=== PATIENT | male | born 1940 | race Caucasian/White ===

== ENCOUNTER 2023-02-07 20:39 | Inpatient (IN) ==
[2023-02-07] MEDS ORDERED: LACTATED RINGERS 1,000 ML IV ONE (20:54)
[2023-02-07 21:01] LABS: POC Calcium, Ionized 1.08 (1.16-1.32); POC Potassium 3.6 (3.3-5.1)
[2023-02-07] MEDS ORDERED: METOPROLOL TARTRATE 5 MG/5 ML VIAL IV ONE (21:44)
[2023-02-07] MEDS ORDERED: ACETAMINOPHEN 325 MG TABLET PO ONE (21:56)
[2023-02-07 21:59] LABS: ALT/SGPT 10 U/L (<40); AST/SGOT 32 U/L (<40); Alkaline Phosphatase 156 U/L (39-117); Bilirubin,Direct 0.2 mg/dL (<0.3); Bilirubin,Total 0.7 mg/dL (0.1-1.0); Globulin 3.5 gm/dL (2.2-3.7)
[2023-02-07 22:11] LABS: Basophils # (Auto) 0.01 K/mcL (0.00-0.30); Basophils % (Auto) 0.2 % (0.0-2.0); Eosinophils # (Auto) 0 K/mcL (0.00-0.70); Eosinophils % (Auto) 0 % (0.0-7.0); Hematocrit 37.1 % (40.1-51.0); Hemoglobin 12.5 g/dL (13.7-17.5); Lymphocytes # (Auto) 1.15 K/mcL (1.50-4.80); Lymphocytes % (Auto) 25.4 % (15.5-49.0); Mean Cell Volume 90.3 fL (80.0-100.0); Mean Corpuscular HGB Conc 33.7 g/dL (31.0-36.0); Mean Platelet Volume 11.7 fL (8.8-12.5); Monocytes # (Auto) 1.22 K/mcL (0.10-0.90); Platelet Count 189 K/mcL (140-440); RBC 4.11 M/mcL (4.63-6.08); WBC 4.5 K/mcL (4.5-11.0)
[2023-02-07 22:22] LABS: Appearance,Urine CLEAR (Clear); Bilirubin,Urine Negative (Negative); Color,Urine YELLOW; Culture Indicated,Urine No; Glucose,Urine (UA) 150 mg/dL (Negative); Ketones,Urine Negative (Negative); Leukocyte Esterase,Urine Negative /uL (Negative); Nitrate,Urine Negative (Negative); Protein,Urine 100 mg/dL (Negative); Specific Gravity,Urine 1.011 (1.000-1.035); Urine Blood >=1.0 mg/dL (Negative); Urine RBC > 182 /hpf (0-1); Urine Squamous Epithelial Cell 0 /hpf (0-4); Urine WBC 1 /hpf (0-4); Urobilinogen,Urine Negative
--- NOTE | 2023-02-07 22:35 | Emergency Department Note ---
HPI General Chief complaint: Weakness Stated complaint: weakness/ams/vomiting Time Seen by Provider: 02/07/23 20:44 Source: family Mode of arrival: wheelchair Limitations: altered mental status History of Present Illness HPI Narrative: Narrative: This is an 82-year-old gentleman with a history of atrial fibrillation, chronic kidney disease, coronary artery disease, atrial fibrillation presents to the emergency department with cough, fevers confusion and diffuse weakness. There does not seem to be any obvious source of pain. The patient denies any falls. The patient was actually seen in the emergency department yesterday was given some IV fluids for weakness and confusion and his mentation and generalized strength seem to improve. Family states that he seems to be worse today. His fever is much higher. Related Data Home Medications Medication Instructions Recorded Confirmed aspirin 81 mg chewable tablet 81 mg PO QDAY 05/12/15 01/20/23 multivitamin 1 tab-cap PO QDAY 05/12/15 01/20/23 omega-3 fatty acids 1,000 mg 1,000 mg PO BID 09/06/19 01/20/23 capsule (Fish Oil Concentrate) cholecalciferol (vitamin D3) 50 1,000 unit PO QDAY 07/12/22 01/20/23 mcg (2,000 unit) capsule gabapentin 100 mg capsule 300 mg PO QHS 07/12/22 01/20/23 laxiclear PO PRN 07/12/22 01/20/23 calcium carbonate 600 mg calcium 600 mg PO QDAY 01/10/23 01/20/23 (1,500 mg) tablet mirabegron 50 mg tablet,extended 50 mg PO QDAY 01/10/23 01/20/23 release 24 hr (Myrbetriq) Previous Rx's Medication Instructions Recorded apixaban 2.5 mg tablet (Eliquis) 2.5 mg PO BID #180 tabs 04/29/22 atorvastatin 20 mg tablet 20 mg PO QDAY #90 tabs 04/29/22 tamsulosin 0.4 mg capsule 0.4 mg PO Q24H #90 caps 04/29/22 finasteride 5 mg tablet 5 mg PO QDAY #90 tabs 05/27/22 levothyroxine 100 mcg tablet 100 mcg PO QDAY #90 tabs 06/27/22 metoprolol succinate 50 mg 50 mg PO QDAY a fib and HTN #90 07/12/22 tablet,extended release 24 hr tabs losartan 25 mg tablet 25 mg PO QDAY #90 tabs 01/09/23 fluticasone propionate 50 1 spray intranasal QDAY PRN 01/10/23 mcg/actuation nasal allergy symptoms #16 grams spray,suspension Allergies Allergy/AdvReac Type Severity Reaction Status Date / Time No Known Drug Allergies Allergy Verified 02/06/23 12:54 Review of Systems ROS ROS Narrative: Narrative: All systems ED: reviewed and negative except as stated. [facility]LY [facility] Narrative Patient History Narrative: Narrative: Medical/Surgical/Family History All Active Problems (Updated 02/07/23 @ 23:18 by Venancio Silvestre MD) CKD (chronic kidney disease), stage III (Chronic) CAD (coronary artery disease) (Chronic) HTN (hypertension), benign (Chronic) DM type 2 (diabetes mellitus, type 2) (Chronic) S/P CABG x 2 (Chronic) Anemia (Chronic) Back pain (Chronic) Mazariegos's esophagus (Chronic) GERD (gastroesophageal reflux disease) (Chronic) Hyperlipidemia (Chronic 01/12/14) Hypertensive renal disease (Chronic 01/12/14) Proteinuria (Chronic 01/12/14) History of skin cancer (Chronic) Somnolence (Chronic) Secondary hyperparathyroidism of renal origin (Chronic) Hyperparathyroidism due to renal insufficiency (Chronic) BPH w/o urinary obs/LUTS (Chronic) 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) Polyuria (Chronic) Impairment of urinary concentration (Chronic) Leg swelling (Chronic) Hypothyroidism (acquired) (Acute) CKD (chronic kidney disease) stage 4, GFR 15-29 ml/min (Acute) Medicare annual wellness visit, subsequent (Acute) PAD (peripheral artery disease) (Acute) Right shoulder pain (Acute) Nocturia (Acute) Hot flash in male (Acute) Chronic right shoulder pain (Acute) Opiate overdose (Acute) Postoperative fever (Acute) Gross hematuria (Acute) S/P repair of paraesophageal hernia (Acute) Status post laparoscopic fundoplication (Acute) Hematuria (Acute) Nocturia more than twice per night (Chronic) Permanent atrial fibrillation (Acute) Dehydration (Acute) Generalized weakness (Acute) Atrial fibrillation with rapid ventricular response (Acute) Acute hypoxemic respiratory failure due to COVID-19 (Acute) Medical History Acute kidney injury Anemia Back pain Mazariegos's esophagus BPH w/o urinary obs/LUTS Not well controlled on finasteride and Flomax for the last few years. CAD (coronary artery disease) Status post CABG in 2002 and 2013 Follows with cardiology Aspirin and statin CKD (chronic kidney disease), stage III Incomplete recovery from ATN PLUS underlying proteinuric renal disease with Hx of DM and HTN. 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 History of skin cancer HTN (hypertension), benign Hyperlipidemia (01/12/14) Hyperparathyroidism due to renal insufficiency Goal level 150-300 arrange which she is in Hypertensive renal disease (01/12/14) BP control much improved ct with losartan at lower dose follow low sodium diet will monitor Impairment of urinary concentration Most likely tubulointerstitial process with urine specific gravity fixed at 1.010 Leg swelling Medicare annual wellness visit, subsequent Polyuria Continue alpha-1 arlene, beta 3 antagonist, and a 5 hydroxylase inhibitor Proteinuria (01/12/14) from diabetic kidney disease is a likely possibility losartan for antiproteinuric effect Renal failure (ARF), acute on chronic Acute prerenal azotemia due to dehydration and losartan Baseline creatinine in the 2's with a peak of 4.1 on March 20, 2022 Treated with IV fluids and discontinuation of his losartan, followed by resart of losartan at decreased dose. Secondary hyperparathyroidism of renal origin PTH elevated to 122, Vitamin D is low at 29, calcium is at 9.2, phos is low at 2.6 start cholecalciferol will follow labs, if phos remains low with start supplements Somnolence increase fatigue ? need to r/o sleep apnea if symptoms do not improve, consider sleept study 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 hypertension Stable GFR after brief decline. Nonnephrotic range proteinuria Surgical History History of arthroscopic knee surgery 1990 Right History of carpal tunnel repair 1988 Bilateral History of cataract surgery 2004 Bilateral History of coronary artery bypass graft 2003 Times 3 History of open heart surgery (01/27/15) History of repair of left rotator cuff 2003 History of repair of right rotator cuff 2001 History of total right knee replacement 2009 S/P CABG x 2 S/P repair of paraesophageal hernia Status post laparoscopic fundoplication Family History Brothers Accidental Sister Accidental Father Aortic aneurysm, Onset Age: 72 Brother , of unknown cancer Family history of malignant neoplasm, Onset Age: 58 Mother Malignant Melanoma of Skin, Onset Age: 75 Other Cancer Social History Smoking Status: Former smoker and Smokeless tobacco Alcohol Intake Frequency: does not drink Substance Use: does not use Exam Narrative Narrative: Narrative: Vital signs noted General: Awake. Mild distress HEENT: NCAT PERRL EOMI. No conjunctivitis. Membranes moist. Neck: Supple, trachea midline Cardiovascular: Irregularly irregular tachycardic. No murmur. No rubs. No gallops. Respiratory: Tachypneic, breath sounds are clear Gastrointestinal: Soft. No tenderness Musculoskeletal: No pain. No soft tissue swelling. Good ROM. No signs injury Skin: Warm. Dry. No rash Neurologic: Moves all extremities equally and fully, speech is fluent face is symmetric General Limitations: altered mental status Course Vital Signs Vital signs: Vital Signs Temperature 102.8 F H 02/07/23 20:40 Pulse Rate 123 H 02/07/23 20:40 Respiratory Rate 22 02/07/23 20:40 Blood Pressure 179/106 02/07/23 20:40 Pulse Oximetry (%) 90 02/07/23 20:40 Oxygen Delivery Method Room Air 02/07/23 20:40 Temperature 101.0 F H 02/07/23 23:02 Pulse Rate 111 H 02/07/23 22:31 Respiratory Rate 22 02/07/23 23:34 Blood Pressure 156/96 02/07/23 23:02 Pulse Oximetry (%) 96 02/07/23 22:49 Oxygen Delivery Method Nasal Cannula 02/07/23 23:02 Oxygen Flow Rate (L/min) 2 02/07/23 23:02 [facility] MDM Narrative Medical decision making narrative: Narrative: Patient presents to the emergency department for fevers, confusion and a slight productive cough. He is ill-appearing upon arrival he is in A-fib with RVR, tachypneic and febrile he is confused from his baseline per family. Sepsis work-up was initiated patient's lactate is within normal limits his venous blood gas does not show any evidence of acidosis. Procalcitonin is not significantly elevated his creatinine is mildly elevated at 3.0. I did review patient's visit and labs from yesterday. He did not have any leukocytosis nor does he today. His COVID testing is positive. Influenza testing is negative. His chest x-ray per my interpretation does not show any evidence of acute infiltrate. The patient is desaturating to the high 80s without exertion he is placed on 2 L nasal cannula. Patient's heart rate was up into the 130s intermittently I did give him 5 mg IV Lopressor with some improvement in his heart rate. The patient was given Tylenol for fever. Given the patient's age and medical comorbidities I have spoke with the hospitalist who has agreed to admit him for hypoxia, COVID. Lab Data 02/07/23 19:45 Labs: Lab Results 02/07/23 02/07/23 02/07/23 Range/Units 19:45 19:45 19:45 WBC 4.5 (4.5-11.0) K/mcL RBC 4.11 L (4.63-6.08) M/mcL Hgb 12.5 L (13.7-17.5) g/dL Hct 37.1 L (40.1-51.0) % POC Hct (41-55) MCV 90.3 (80.0-100.0) fL MCH 30.4 (26.0-34.0) pg MCHC 33.7 (31.0-36.0) g/dL RDW 13.0 (11.5-14.5) % Plt Count 189 (140-440) K/mcL MPV 11.7 (8.8-12.5) fL Immature Gran % (Auto) 0.4 (0.0-0.5) % Neut % (Auto) 47.0 (38.0-78.0) % Lymph % (Auto) 25.4 (15.5-49.0) % Custer % (Auto) 27.0 H (1.0-12.0) % Eos % (Auto) 0 (0.0-7.0) % Baso % (Auto) 0.2 (0.0-2.0) % Lymph # (Auto) 1.15 L (1.50-4.80) K/mcL Custer # (Auto) 1.22 H (0.10-0.90) K/mcL Eos # (Auto) 0 (0.00-0.70) K/mcL Baso # (Auto) 0.01 (0.00-0.30) K/mcL Immature Gran # 0.02 (0.00-0.05) K/mcl Absolute Neutrophils 2.12 (1.80-8.00) K/mcL POC VBG pH (7.32-7.42) POC VBG pCO2 at Temp (41-51) POC VBG pO2 (25-40) POC VBG HCO3 (24-28) POC VBG Total CO2 (25-29) POC Venous O2 Sat (40-70) POC VBG Base Excess (-2-2) VBG Lactic Acid (0.5-2) POC Sodium (133-145) POC Potassium (3.3-5.1) POC Chloride (96-108) POC Total CO2 (22-30) POC BUN (6-20) POC Creatinine (0.6-1.2) POC Glucose (70-105) POC WB Ioniz Calcium (1.16-1.32) Total Bilirubin 0.7 (0.1-1.0) mg/dL Direct Bilirubin 0.2 (<0.3) mg/dL AST 32 (<40) U/L ALT 10 (<40) U/L Alkaline Phosphatase 156 H (39-117) U/L Troponin T (<0.03) ng/mL Total Protein 7.5 (5.9-8.4) gm/dL Albumin 4.0 (3.2-5.2) gm/dL Globulin 3.5 (2.2-3.7) gm/dL Procalcitonin 0.20 H (<0.10) ng/mL Urine Color Urine Appearance (Clear) Urine pH (5.0-9.0) Ur Specific Crane (1.000-1.035) Urine Protein (Negative) mg/dL Urine Glucose (UA) (Negative) mg/dL Urine Ketones (Negative) mg/dL Urine Occult Blood (Negative) mg/dL Urine Nitrate (Negative) Urine Bilirubin (Negative) mg/dL Urine Urobilinogen mg/dL Ur Leukocyte Esterase (Negative) /uL Urine RBC (0-1) /hpf Urine WBC (0-4) /hpf Ur Squamous Epith Cells (0-4) /hpf Urine Bacteria (0) /hpf Ur Culture Indicated? POC Troponin I (0.00-0.08) 02/07/23 02/07/23 02/07/23 Range/Units 19:45 20:55 20:57 WBC (4.5-11.0) K/mcL RBC (4.63-6.08) M/mcL Hgb (13.7-17.5) g/dL Hct (40.1-51.0) % POC Hct 38.0 L (41-55) MCV (80.0-100.0) fL MCH (26.0-34.0) pg MCHC (31.0-36.0) g/dL RDW (11.5-14.5) % Plt Count (140-440) K/mcL MPV (8.8-12.5) fL Immature Gran % (Auto) (0.0-0.5) % Neut % (Auto) (38.0-78.0) % Lymph % (Auto) (15.5-49.0) % Custer % (Auto) (1.0-12.0) % Eos % (Auto) (0.0-7.0) % Baso % (Auto) (0.0-2.0) % Lymph # (Auto) (1.50-4.80) K/mcL Custer # (Auto) (0.10-0.90) K/mcL Eos # (Auto) (0.00-0.70) K/mcL Baso # (Auto) (0.00-0.30) K/mcL Immature Gran # (0.00-0.05) K/mcl Absolute Neutrophils (1.80-8.00) K/mcL POC VBG pH 7.46 H (7.32-7.42) POC VBG pCO2 at Temp 38.0 L (41-51) POC VBG pO2 36 (25-40) POC VBG HCO3 27.0 (24-28) POC VBG Total CO2 28.0 (25-29) POC Venous O2 Sat 73.0 H (40-70) POC VBG Base Excess 3.0 H (-2-2) VBG Lactic Acid 1.3 (0.5-2) POC Sodium 134 (133-145) POC Potassium 3.6 (3.3-5.1) POC Chloride 98 (96-108) POC Total CO2 26.0 (22-30) POC BUN 29 H (6-20) POC Creatinine 3.0 H (0.6-1.2) POC Glucose 188 H (70-105) POC WB Ioniz Calcium 1.08 L (1.16-1.32) Total Bilirubin (0.1-1.0) mg/dL Direct Bilirubin (<0.3) mg/dL AST (<40) U/L ALT (<40) U/L Alkaline Phosphatase (39-117) U/L Troponin T 0.02 (<0.03) ng/mL Total Protein (5.9-8.4) gm/dL Albumin (3.2-5.2) gm/dL Globulin (2.2-3.7) gm/dL Procalcitonin (<0.10) ng/mL Urine Color Urine Appearance (Clear) Urine pH (5.0-9.0) Ur Specific Crane (1.000-1.035) Urine Protein (Negative) mg/dL Urine Glucose (UA) (Negative) mg/dL Urine Ketones (Negative) mg/dL Urine Occult Blood (Negative) mg/dL Urine Nitrate (Negative) Urine Bilirubin (Negative) mg/dL Urine Urobilinogen mg/dL Ur Leukocyte Esterase (Negative) /uL Urine RBC (0-1) /hpf Urine WBC (0-4) /hpf Ur Squamous Epith Cells (0-4) /hpf Urine Bacteria (0) /hpf Ur Culture Indicated? POC Troponin I (0.00-0.08) 02/07/23 02/07/23 Range/Units 21:01 21:37 WBC (4.5-11.0) K/mcL RBC (4.63-6.08) M/mcL Hgb (13.7-17.5) g/dL Hct (40.1-51.0) % POC Hct (41-55) MCV (80.0-100.0) fL MCH (26.0-34.0) pg MCHC (31.0-36.0) g/dL RDW (11.5-14.5) % Plt Count (140-440) K/mcL MPV (8.8-12.5) fL Immature Gran % (Auto) (0.0-0.5) % Neut % (Auto) (38.0-78.0) % Lymph % (Auto) (15.5-49.0) % Custer % (Auto) (1.0-12.0) % Eos % (Auto) (0.0-7.0) % Baso % (Auto) (0.0-2.0) % Lymph # (Auto) (1.50-4.80) K/mcL Custer # (Auto) (0.10-0.90) K/mcL Eos # (Auto) (0.00-0.70) K/mcL Baso # (Auto) (0.00-0.30) K/mcL Immature Gran # (0.00-0.05) K/mcl Absolute Neutrophils (1.80-8.00) K/mcL POC VBG pH (7.32-7.42) POC VBG pCO2 at Temp (41-51) POC VBG pO2 (25-40) POC VBG HCO3 (24-28) POC VBG Total CO2 (25-29) POC Venous O2 Sat (40-70) POC VBG Base Excess (-2-2) VBG Lactic Acid (0.5-2) POC Sodium (133-145) POC Potassium (3.3-5.1) POC Chloride (96-108) POC Total CO2 (22-30) POC BUN (6-20) POC Creatinine (0.6-1.2) POC Glucose (70-105) POC WB Ioniz Calcium (1.16-1.32) Total Bilirubin (0.1-1.0) mg/dL Direct Bilirubin (<0.3) mg/dL AST (<40) U/L ALT (<40) U/L Alkaline Phosphatase (39-117) U/L Troponin T (<0.03) ng/mL Total Protein (5.9-8.4) gm/dL Albumin (3.2-5.2) gm/dL Globulin (2.2-3.7) gm/dL Procalcitonin (<0.10) ng/mL Urine Color Yellow Urine Appearance Clear (Clear) Urine pH 8.0 (5.0-9.0) Ur Specific Crane 1.011 (1.000-1.035) Urine Protein 100 A (Negative) mg/dL Urine Glucose (UA) 150 A (Negative) mg/dL Urine Ketones Negative (Negative) mg/dL Urine Occult Blood >=1.0 A (Negative) mg/dL Urine Nitrate Negative (Negative) Urine Bilirubin Negative (Negative) mg/dL Urine Urobilinogen Negative mg/dL Ur Leukocyte Esterase Negative (Negative) /uL Urine RBC > 182 H (0-1) /hpf Urine WBC 1 (0-4) /hpf Ur Squamous Epith Cells 0 (0-4) /hpf Urine Bacteria None (0) /hpf Ur Culture Indicated? No POC Troponin I 0.06 (0.00-0.08) EKG Data EKG #1: EKG attestation: Yes I reviewed and interpreted this EKG., Yes There are no EKG findings of acute coronary syndrome and Yes This EKG will be read by nuclear radiation engineer EKG results narrative: Atrial fibrillation with RVR rate of 116 no evidence of acute ischemia Discharge Plan Patient/Caregiver Discharge Instructions Pt seen by CHILD ATTENDANT/PA only: No Clinical Impression: Atrial fibrillation with rapid ventricular response, Acute hypoxemic respiratory failure due to COVID-19 Patient Disposition: Xfer As Inpt ([facility]) Discharge Date/Time: 02/08/23 00:15
[2023-02-07] MEDS ORDERED: REMDESIVIR 200 MG in 0.9 % SODIUM CHLORIDE 250 ML IV ONE (22:53)
[2023-02-07] MEDS ORDERED: DEXAMETHASONE 10 MG/ML VIAL IV ONE (22:55)
--- NOTE | 2023-02-07 23:07 | Internal Med History&Physical ---
HPI History of Present Illness Patient information: Note initiated : 02/07/23 at 11:05 pm Service Date, if different from initiated Date: [] Patient: Collin Clinton 82 y/o M admitted on for weakness/ams/vomiting. Chief Complaint: [] History of present illness: Mr. Clinton is a 82 year old male with a history of hypertension, diabetes mellitus, atrial fibrillation, chronic kidney disease stage IV, coronary artery disease who developed generalized weakness was brought to the emergency department on 02/06/2023 and found to have COVID. Patient was discharged home however returned to the hospital with worsening of symptoms and an oxygen requirement of about 2 L/min. Hospital medicine was consulted for admission. Review of systems Constitutional: Positive for fever, fatigue, generalized weakness Eyes: no vision changes or pain Cardiovascular: no chest pain, no palpitations Respiratory: Positive for cough, dyspnea Gastrointestinal: no abdominal pain, no nausea, vomiting, or diarrhea Genitourinary: no dysuria or difficulty voiding Musculoskeletal: no arthralgia or myalgia Integumentary: no skin lesion or wound Neurological: no focal weakness or numbness Psychiatric: no anxiety or depression Physical exam Head: Atraumatic, normal inspection. Eyes: normal appearance, no scleral icterus. Neck: full ROM Respiratory: 2 L/min nasal cannula oxygen, no respiratory distress. Cardiovascular: normal rate and rhythm, S1, S2. GI/Abdominal: soft, nontender, no guarding. Extremities: full range of motion, nontender. Neurological: CN II-XII intact, intact motor, intact sensation. Psychiatric: Impaired memory Skin: warm, normal color PFSH PFSH All Active Problems (Updated 02/07/23 @ 23:18 by Venancio Silvestre MD) CKD (chronic kidney disease), stage III (Chronic) CAD (coronary artery disease) (Chronic) HTN (hypertension), benign (Chronic) DM type 2 (diabetes mellitus, type 2) (Chronic) S/P CABG x 2 (Chronic) Anemia (Chronic) Back pain (Chronic) Mazariegos's esophagus (Chronic) GERD (gastroesophageal reflux disease) (Chronic) Hyperlipidemia (Chronic 01/12/14) Hypertensive renal disease (Chronic 01/12/14) Proteinuria (Chronic 01/12/14) History of skin cancer (Chronic) Somnolence (Chronic) Secondary hyperparathyroidism of renal origin (Chronic) Hyperparathyroidism due to renal insufficiency (Chronic) BPH w/o urinary obs/LUTS (Chronic) 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) Polyuria (Chronic) Impairment of urinary concentration (Chronic) Leg swelling (Chronic) Hypothyroidism (acquired) (Acute) CKD (chronic kidney disease) stage 4, GFR 15-29 ml/min (Acute) Medicare annual wellness visit, subsequent (Acute) PAD (peripheral artery disease) (Acute) Right shoulder pain (Acute) Nocturia (Acute) Hot flash in male (Acute) Chronic right shoulder pain (Acute) Opiate overdose (Acute) Postoperative fever (Acute) Gross hematuria (Acute) S/P repair of paraesophageal hernia (Acute) Status post laparoscopic fundoplication (Acute) Hematuria (Acute) Nocturia more than twice per night (Chronic) Permanent atrial fibrillation (Acute) Dehydration (Acute) Generalized weakness (Acute) Atrial fibrillation with rapid ventricular response (Acute) Acute hypoxemic respiratory failure due to COVID-19 (Acute) Medical History Acute kidney injury Anemia Back pain Mazariegos's esophagus BPH w/o urinary obs/LUTS Not well controlled on finasteride and Flomax for the last few years. CAD (coronary artery disease) Status post CABG in 2002 and 2013 Follows with cardiology Aspirin and statin CKD (chronic kidney disease), stage III Incomplete recovery from ATN PLUS underlying proteinuric renal disease with Hx of DM and HTN. 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 History of skin cancer HTN (hypertension), benign Hyperlipidemia (01/12/14) Hyperparathyroidism due to renal insufficiency Goal level 150-300 arrange which she is in Hypertensive renal disease (01/12/14) BP control much improved ct with losartan at lower dose follow low sodium diet will monitor Impairment of urinary concentration Most likely tubulointerstitial process with urine specific gravity fixed at 1.010 Leg swelling Medicare annual wellness visit, subsequent Polyuria Continue alpha-1 arlene, beta 3 antagonist, and a 5 hydroxylase inhibitor Proteinuria (01/12/14) from diabetic kidney disease is a likely possibility losartan for antiproteinuric effect Renal failure (ARF), acute on chronic Acute prerenal azotemia due to dehydration and losartan Baseline creatinine in the 2's with a peak of 4.1 on March 20, 2022 Treated with IV fluids and discontinuation of his losartan, followed by resart of losartan at decreased dose. Secondary hyperparathyroidism of renal origin PTH elevated to 122, Vitamin D is low at 29, calcium is at 9.2, phos is low at 2.6 start cholecalciferol will follow labs, if phos remains low with start supplements Somnolence increase fatigue ? need to r/o sleep apnea if symptoms do not improve, consider sleept study 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 hypertension Stable GFR after brief decline. Nonnephrotic range proteinuria Surgical History History of arthroscopic knee surgery 1990 Right History of carpal tunnel repair 1988 Bilateral History of cataract surgery 2004 Bilateral History of coronary artery bypass graft 2003 Times 3 History of open heart surgery (01/27/15) History of repair of left rotator cuff 2002 History of repair of right rotator cuff 2000 History of total right knee replacement 2009 S/P CABG x 2 S/P repair of paraesophageal hernia Status post laparoscopic fundoplication Family History Brothers Accidental Sister Accidental Father Aortic aneurysm, Onset Age: 72 Brother , of unknown cancer Family history of malignant neoplasm, Onset Age: 58 Mother Malignant Melanoma of Skin, Onset Age: 75 Other Cancer Social History marital status: occupational status: retired physical activity: walking and swimming frequency: 5-6 times per week duration: 30-45 minutes/day smoking status: Former smoker quit date: 10/06/04 pack-years: 30 and Smokeless tobacco Smokeless tobacco user details: Former alcohol intake frequency: does not drink substance use type: does not use MEDS/ALLERGIES Home Medications and Allergies Home Medications Medication Instructions Recorded Confirmed Type aspirin 81 mg chewable tablet 81 mg PO QDAY 05/12/15 01/20/23 History multivitamin 1 tab-cap PO QDAY 05/12/15 01/20/23 History omega-3 fatty acids 1,000 mg 1,000 mg PO BID 09/06/19 01/20/23 History capsule (Fish Oil Concentrate) apixaban 2.5 mg tablet (Eliquis) 2.5 mg PO BID #180 tabs 04/29/22 01/20/23 Rx atorvastatin 20 mg tablet 20 mg PO QDAY #90 tabs 04/29/22 01/20/23 Rx tamsulosin 0.4 mg capsule 0.4 mg PO Q24H #90 caps 04/29/22 01/20/23 Rx finasteride 5 mg tablet 5 mg PO QDAY #90 tabs 05/27/22 01/20/23 Rx levothyroxine 100 mcg tablet 100 mcg PO QDAY #90 tabs 06/27/22 01/20/23 Rx cholecalciferol (vitamin D3) 50 1,000 unit PO QDAY 07/12/22 01/20/23 History mcg (2,000 unit) capsule gabapentin 100 mg capsule 300 mg PO QHS 07/12/22 01/20/23 History laxiclear PO PRN 07/12/22 01/20/23 History metoprolol succinate 50 mg 50 mg PO QDAY a fib and HTN #90 07/12/22 01/20/23 Rx tablet,extended release 24 hr tabs losartan 25 mg tablet 25 mg PO QDAY #90 tabs 01/09/23 01/20/23 Rx calcium carbonate 600 mg calcium 600 mg PO QDAY 01/10/23 01/20/23 History (1,500 mg) tablet fluticasone propionate 50 1 spray intranasal QDAY PRN 01/10/23 01/20/23 Rx mcg/actuation nasal allergy symptoms #16 grams spray,suspension mirabegron 50 mg tablet,extended 50 mg PO QDAY 01/10/23 01/20/23 History release 24 hr (Myrbetriq) Allergies Allergy/AdvReac Type Severity Reaction Status Date / Time No Known Drug Allergies Allergy Verified 02/06/23 12:54 EXAM Constitutional Vitals: Temp Pulse Resp BP Pulse Ox O2 Del Method O2 Flow Rate 102.8 F H 111 H 23 H 148/105 96 Nasal Cannula 2 02/07/23 22:00 02/07/23 22:31 02/07/23 22:49 02/07/23 22:31 02/07/23 22:49 02/07/23 22:49 02/07/23 22:49 DATA Data Completed and Pending Labs: Labs from last 24 hours 02/07/23 02/07/23 02/07/23 21:37 21:01 20:57 WBC RBC Hgb Hct POC Hct 38.0 L MCV MCH MCHC RDW Plt Count MPV Immature Gran % (Auto) Neut % (Auto) Lymph % (Auto) Castro % (Auto) Eos % (Auto) Baso % (Auto) Lymph # (Auto) Castro # (Auto) Eos # (Auto) Baso # (Auto) Immature Gran # Absolute Neutrophils POC VBG pH POC VBG pCO2 at Temp POC VBG pO2 POC VBG HCO3 POC VBG Total CO2 POC Venous O2 Sat POC VBG Base Excess VBG Lactic Acid POC Sodium 134 POC Potassium 3.6 POC Chloride 98 POC Total CO2 26.0 POC BUN 29 H POC Creatinine 3.0 H POC Glucose 188 H POC WB Ioniz Calcium 1.08 L Total Bilirubin Direct Bilirubin AST ALT Alkaline Phosphatase Troponin T Total Protein Albumin Globulin Procalcitonin Urine Color Yellow Urine Appearance Clear Urine pH 8.0 Ur Specific Dana 1.011 Urine Protein 100 A Urine Glucose (UA) 150 A Urine Ketones Negative Urine Occult Blood >=1.0 A Urine Nitrate Negative Urine Bilirubin Negative Urine Urobilinogen Negative Ur Leukocyte Esterase Negative Urine RBC > 182 H Urine WBC 1 Ur Squamous Epith Cells 0 Urine Bacteria None Ur Culture Indicated? No POC Troponin I 0.06 02/07/23 02/07/23 02/07/23 20:55 19:45 19:45 WBC RBC Hgb Hct POC Hct MCV MCH MCHC RDW Plt Count MPV Immature Gran % (Auto) Neut % (Auto) Lymph % (Auto) Castro % (Auto) Eos % (Auto) Baso % (Auto) Lymph # (Auto) Castro # (Auto) Eos # (Auto) Baso # (Auto) Immature Gran # Absolute Neutrophils POC VBG pH 7.46 H POC VBG pCO2 at Temp 38.0 L POC VBG pO2 36 POC VBG HCO3 27.0 POC VBG Total CO2 28.0 POC Venous O2 Sat 73.0 H POC VBG Base Excess 3.0 H VBG Lactic Acid 1.3 POC Sodium POC Potassium POC Chloride POC Total CO2 POC BUN POC Creatinine POC Glucose POC WB Ioniz Calcium Total Bilirubin Direct Bilirubin AST ALT Alkaline Phosphatase Troponin T 0.02 Total Protein Albumin Globulin Procalcitonin 0.20 H Urine Color Urine Appearance Urine pH Ur Specific Dana Urine Protein Urine Glucose (UA) Urine Ketones Urine Occult Blood Urine Nitrate Urine Bilirubin Urine Urobilinogen Ur Leukocyte Esterase Urine RBC Urine WBC Ur Squamous Epith Cells Urine Bacteria Ur Culture Indicated? POC Troponin I 02/07/23 02/07/23 19:45 19:45 WBC 4.5 RBC 4.11 L Hgb 12.5 L Hct 37.1 L POC Hct MCV 90.3 MCH 30.4 MCHC 33.7 RDW 13.0 Plt Count 189 MPV 11.7 Immature Gran % (Auto) 0.4 Neut % (Auto) 47.0 Lymph % (Auto) 25.4 Castro % (Auto) 27.0 H Eos % (Auto) 0 Baso % (Auto) 0.2 Lymph # (Auto) 1.15 L Castro # (Auto) 1.22 H Eos # (Auto) 0 Baso # (Auto) 0.01 Immature Gran # 0.02 Absolute Neutrophils 2.12 POC VBG pH POC VBG pCO2 at Temp POC VBG pO2 POC VBG HCO3 POC VBG Total CO2 POC Venous O2 Sat POC VBG Base Excess VBG Lactic Acid POC Sodium POC Potassium POC Chloride POC Total CO2 POC BUN POC Creatinine POC Glucose POC WB Ioniz Calcium Total Bilirubin 0.7 Direct Bilirubin 0.2 AST 32 ALT 10 Alkaline Phosphatase 156 H Troponin T Total Protein 7.5 Albumin 4.0 Globulin 3.5 Procalcitonin Urine Color Urine Appearance Urine pH Ur Specific Dana Urine Protein Urine Glucose (UA) Urine Ketones Urine Occult Blood Urine Nitrate Urine Bilirubin Urine Urobilinogen Ur Leukocyte Esterase Urine RBC Urine WBC Ur Squamous Epith Cells Urine Bacteria Ur Culture Indicated? POC Troponin I A/P Narrative A/P Narrative: Assessment: 82 year old male with HTN, DM, afib on Eliquis, CKD, CAD admitted for severe COVID-19 complicated by acute hypoxic respiratory failure. Symptom onset was the day prior to admission. #Acute hypoxic respiratory failure #Severe COVID-19 #Atrial fibrillation with RVR #Chronic kidney disease stage 4 #Diabetes mellitus #Hypertension #CAD Plan -Dexamethasone 6 mg daily per COVID protocol. -Remdesivir for early COVID, symptom onset 02/06. -Oxygen supplementation as needed. -IV fluid. -Check CRP. -Follow renal function. -Correction Humalog SSI medium dose. -Lopressor IV prn for Afib with RVR for now. -Follow up pending chest xray radiology report. -Home medication reconciliation. -gambling monitor. -PT and OT. -Diabetic diet. -DVT prophylaxis: home Eliquis. Time Spent With Patient Time: Total time spent is greater than 50% in coordination of care (as documented) at patient's floor/unit and/or counseling patient:
[2023-02-08] MEDS ORDERED: ONDANSETRON 4 MG/2 ML VIAL IV PRN (00:42)
[2023-02-08] MEDS ORDERED: DEXTROSE 31 GM ORAL.SUSP PO PRN (00:42)
[2023-02-08] MEDS ORDERED: METOPROLOL TARTRATE 5 MG/5 ML VIAL IV PRN (00:42)
[2023-02-08] MEDS ORDERED: SENNOSIDES 1 TABLET PO PRN (00:42)
[2023-02-08] MEDS ORDERED: ACETAMINOPHEN 325 MG TABLET PO PRN (00:42)
[2023-02-08] MEDS ORDERED: DEXTROSE 50% 50 ML VIAL IV PRN (00:42)
[2023-02-08] MEDS ORDERED: LACTULOSE 20 GM/30 ML ORAL.SOL PO PRN (00:42)
[2023-02-08] MEDS: 0.9 % SODIUM CHLORIDE 1,000 ML IV SCH ×3 (01:08→08:32)
[2023-02-08 05:49] LABS: Basophils # (Auto) 0 K/mcL (0.00-0.30); Basophils % (Auto) 0 % (0.0-2.0); Eosinophils # (Auto) 0 K/mcL (0.00-0.70); Eosinophils % (Auto) 0 % (0.0-7.0); Hematocrit 35.9 % (40.1-51.0); Hemoglobin 11.8 g/dL (13.7-17.5); Lymphocytes % (Auto) 23.7 % (15.5-49.0); Mean Cell Volume 91.6 fL (80.0-100.0); Mean Corpuscular HGB Conc 32.9 g/dL (31.0-36.0); Mean Platelet Volume 11.5 fL (8.8-12.5); Monocytes # (Auto) 0.17 K/mcL (0.10-0.90); Monocytes % (Auto) 8.1 % (1.0-12.0); Neutrophils % (Auto) 67.7 % (38.0-78.0); Platelet Count 164 K/mcL (140-440); RBC 3.92 M/mcL (4.63-6.08); Red Cell Distribution Width 13.1 % (11.5-14.5); WBC 2.1 K/mcL (4.5-11.0)
[2023-02-08] MEDS: 0.9 % SODIUM CHLORIDE 10 ML SYRINGE IV SCH ×3 (05:50→20:00)
[2023-02-08 06:13] LABS: ALT/SGPT 9 U/L (<40); AST/SGOT 30 U/L (<40); Albumin 3.1 gm/dL (3.2-5.2); Albumin/Globulin Ratio 0.9 (1.0-2.3); Alkaline Phosphatase 137 U/L (39-117); Bilirubin,Direct 0.2 mg/dL (<0.3); Bilirubin,Total 0.5 mg/dL (0.1-1.0); Blood Urea Nitrogen 30 mg/dL (8-23); Calcium 8.2 mg/dL (8.6-10.4); Carbon Dioxide 23 mmol/L (22-30); Chloride 98 mmol/L (96-108); Globulin 3.4 gm/dL (2.2-3.7); Glomerular Filtration Rate 24; Glucose 204 mg/dL (70-105); Lactate Dehydrogenase 311 U/L (135-225); Phosphorous 4.3 mg/dL (2.5-4.5); Triglycerides 83 mg/dL (<150); Uric Acid 5.1 mg/dL (2.5-8.0)
--- NOTE | 2023-02-08 08:16 | XRay Report ---
HISTORY: Fever, Covid, altered mental status FINDINGS: The heart is mild to moderately enlarged and has decreased in size since yesterday. Interstitial lung markings are still prominent. Patient has known pulmonary fibrosis based on the prior chest CT. There may be superimposed low level inflammation or mild pulmonary vessel congestion. This remains stable. There is no consolidating infiltrate, mass or pleural effusion. IMPRESSION: Improving cardiomegaly Interpreted and Authenticated by: Tyson Nelson 02/08/23
[2023-02-08] MEDS: DEXAMETHASONE 10 MG/ML VIAL IV SCH (08:31)
[2023-02-08] MEDS: INSULIN LISPRO 1 UNIT/0.01 ML UNIT SQ SCH ×4 (08:31→21:06)
[2023-02-08] MEDS: DOCUSATE SODIUM 100 MG CAPSULE PO SCH ×2 (08:32→21:04)
[2023-02-08] MEDS ORDERED: chlordiazePOXIDE 25 MG CAPSULE PO ONE (08:55)
[2023-02-08] MEDS ORDERED: APIXABAN 5 MG TABLET PO SCH (09:00)
[2023-02-08] MEDS: HEPARIN 5,000 UNIT/ML VIAL SQ SCH ×2 (09:40→21:05)
[2023-02-08] MEDS: METOPROLOL TARTRATE 50 MG TABLET PO SCH ×2 (09:51→21:04)
[2023-02-08] MEDS: TAMSULOSIN 0.4 MG CAPSULE PO SCH (09:51)
[2023-02-08] MEDS: REMDESIVIR 100 MG in 0.9 % SODIUM CHLORIDE 250 ML IV SCH (16:14)
[2023-02-09] MEDS: 0.9 % SODIUM CHLORIDE 1,000 ML IV SCH (00:17)
[2023-02-09] MEDS: 0.9 % SODIUM CHLORIDE 10 ML SYRINGE IV SCH ×3 (06:07→20:52)
[2023-02-09 06:26] LABS: ALT/SGPT 11 U/L (<40); AST/SGOT 34 U/L (<40); Albumin 2.8 gm/dL (3.2-5.2); Albumin/Globulin Ratio 0.9 (1.0-2.3); Alkaline Phosphatase 119 U/L (39-117); Bilirubin,Direct 0.2 mg/dL (<0.3); Bilirubin,Total 0.4 mg/dL (0.1-1.0); Blood Urea Nitrogen 40 mg/dL (8-23); Calcium 7.9 mg/dL (8.6-10.4); Carbon Dioxide 21 mmol/L (22-30); Chloride 97 mmol/L (96-108); Globulin 3.2 gm/dL (2.2-3.7); Glomerular Filtration Rate 28; Glucose 140 mg/dL (70-105); Lactate Dehydrogenase 287 U/L (135-225); Triglycerides 73 mg/dL (<150); Uric Acid 5.2 mg/dL (2.5-8.0)
[2023-02-09] MEDS ORDERED: FLUTICASONE PROPIONATE SPRAY.NAS NS PRN (06:27)
[2023-02-09 06:35] LABS: Basophils # (Auto) 0 K/mcL (0.00-0.30); Basophils % (Auto) 0 % (0.0-2.0); Eosinophils # (Auto) 0 K/mcL (0.00-0.70); Eosinophils % (Auto) 0 % (0.0-7.0); Hemoglobin 11.4 g/dL (13.7-17.5); Lymphocytes # (Auto) 0.73 K/mcL (1.50-4.80); Lymphocytes % (Auto) 15.3 % (15.5-49.0); Mean Cell Volume 92.1 fL (80.0-100.0); Mean Corpuscular HGB Conc 32.6 g/dL (31.0-36.0); Mean Platelet Volume 11.3 fL (8.8-12.5); Monocytes # (Auto) 1.63 K/mcL (0.10-0.90); Monocytes % (Auto) 34.2 % (1.0-12.0); Neutrophils % (Auto) 50.1 % (38.0-78.0); Platelet Count 176 K/mcL (140-440); Red Cell Distribution Width 13.1 % (11.5-14.5); WBC 4.8 K/mcL (4.5-11.0)
[2023-02-09] MEDS: LEVOTHYROXINE 100 MCG TABLET PO SCH (07:05)
[2023-02-09] MEDS: TAMSULOSIN 0.4 MG CAPSULE PO SCH (07:06)
[2023-02-09] MEDS: INSULIN LISPRO 1 UNIT/0.01 ML UNIT SQ SCH ×4 (07:07→21:09)
--- NOTE | 2023-02-09 08:51 | EKG ---
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
[2023-02-09] MEDS: APIXABAN 5 MG TABLET PO SCH ×2 (09:15→20:53)
[2023-02-09] MEDS: DEXAMETHASONE 10 MG/ML VIAL IV SCH (09:15)
[2023-02-09] MEDS: amLODIPine 5 MG TABLET PO SCH (09:16)
[2023-02-09] MEDS: VITAMIN D3 25 MCG TABLET PO SCH (09:16)
[2023-02-09] MEDS: FINASTERIDE 5 MG TABLET PO SCH (09:16)
[2023-02-09] MEDS: ATORVASTATIN 20 MG TABLET PO SCH (09:16)
[2023-02-09] MEDS: METOPROLOL SUCCINATE 50 MG TAB.XL.24H PO SCH (09:16)
[2023-02-09] MEDS: MIRABEGRON 50 MG PO SCH (09:16)
[2023-02-09] MEDS: ASPIRIN 81 MG TAB.CHEW PO SCH (09:16)
[2023-02-09] MEDS: DOCUSATE SODIUM 100 MG CAPSULE PO SCH ×2 (09:16→20:53)
--- NOTE | 2023-02-09 10:09 | Internal Med Progress Note ---
SUBJECTIVE Subjective Patient information: Note initiated : 02/09/23 at 10:06 am Service Date, if different from initiated Date: [] Patient: Collin Clinton 82 y/o M admitted on 02/08/23 for weakness /ams/vomiting. Chief Complaint: [] Interval history: Mr. Clinton is a 82 year old male with a history of hypertension, diabetes mellitus, atrial fibrillation, chronic kidney disease stage IV, coronary artery disease who developed generalized weakness was brought to the emergency department on 02/06/2023 and found to have COVID. Patient was discharged home however returned to the hospital with worsening of symptoms and an oxygen requirement of about 2 L/min. Hospital medicine was consulted for admission. 02/09 Blood pressures moderately elevated overnight, on room air this morning. No fevers overnight. The patient is more confused than his baseline according to family members however alert and oriented x3 for staff. Discontinued dexamethasone as this can contribute to confusion, continuing remdesivir. Discontinued IV fluid. Resumed home Toprol and Eliquis, added Norvasc for elevated blood pressure. Family visited the patient in the room, did not feel comfortable taking the patient home due to his confusion. Physical exam Head: Atraumatic, normal inspection. Eyes: normal appearance, no scleral icterus. Neck: full ROM Respiratory: On room air, no respiratory distress. Cardiovascular: normal rate and rhythm, S1, S2. GI/Abdominal: soft, nontender, no guarding. Extremities: full range of motion, nontender. Neurological: CN II-XII intact, intact motor, intact sensation. Psychiatric: Impaired memory Skin: warm, normal color Constitutional Vitals: Vital Signs Temp Pulse Resp BP Pulse Ox O2 Del Method O2 Flow Rate 98.9 F 96 H 14 168/112 94 Room Air 2 02/09/23 06:44 02/08/23 09:01 02/09/23 06:44 02/09/23 06:44 02/09/23 06:44 02/09/23 08:00 02/08/23 22:00 Period Temp Pulse Resp BP Sys/Spencer Pulse Ox O2 Del Method O2 Flow Rate Last 24 Hr 98.9 F-99.8 F 14-19 122-168/95-112 90-96 Nasal Cannula-Room Air 2-2 Intake and Output 02/08/23 02/09/23 02/09/23 19:59 03:59 11:59 Intake Total 1210 1470 676 Output Total 325 450 551 Balance 885 1020 125 Weight 81.374 kg Intake & Output: Intake & Output 02/08/23 02/09/23 02/09/23 19:59 03:59 11:59 Intake Total 1210 1470 676 Output Total 325 450 551 Balance 885 1020 125 Weight 81.374 kg Intake: IV 250 1000 676 Sodium Chloride 0.9% 1,000 ml @ 1000 676 75 mls/hr IV .[id number] [facility] Rx#: [id number] Veklury 100 mg In Sodium 250 Chloride 0.9% 250 ml @ 500 mls/ hr IV Q24H [facility] Rx#:[id number] Oral 240 470 GI Tube Flush 720 Output: Void Amount 325 450 550 # of times incontinent of urine 1 Other: Meal Refused Dinner, poor appetite Percent of Meal Consumed 50% Feeding Ability Independent Urine Appearance Clear Clear Clear Urine Color Yellow Yellow Yellow Urine Odor Normal Normal # Voids 1 OBJ DATA Labs 02/09/23 05:23 02/09/23 05:24 Labs: Abnormal Lab Results 02/09/23 02/09/23 02/08/23 05:24 05:23 07:45 WBC RBC 3.80 L Hgb 11.4 L Hct 35.0 L POC Hct Lymph % (Auto) 15.3 L Bell % (Auto) 34.2 H Lymph # (Auto) 0.73 L Bell # (Auto) 1.63 H Absolute Neutrophils POC VBG pH POC VBG pCO2 at Temp POC Venous O2 Sat POC VBG Base Excess Sodium 130 L Carbon Dioxide 21 L POC BUN BUN 40 H Creatinine 2.1 H POC Creatinine Glucose 140 H POC Glucose Calcium 7.9 L POC WB Ioniz Calcium GGT 80 H Alkaline Phosphatase 119 H Lactate Dehydrogenase 287 H C-Reactive Protein 7.60 H Albumin 2.8 L Albumin/Globulin Ratio 0.9 L Procalcitonin Urine Protein Urine Glucose (UA) Urine Occult Blood Urine RBC 02/08/23 02/08/23 02/07/23 04:28 04:27 21:37 WBC 2.1 L RBC 3.92 L Hgb 11.8 L Hct 35.9 L POC Hct Lymph % (Auto) Bell % (Auto) Lymph # (Auto) 0.50 L Bell # (Auto) Absolute Neutrophils 1.43 L POC VBG pH POC VBG pCO2 at Temp POC Venous O2 Sat POC VBG Base Excess Sodium Carbon Dioxide POC BUN BUN 30 H Creatinine 2.4 H POC Creatinine Glucose 204 H POC Glucose Calcium 8.2 L POC WB Ioniz Calcium GGT 86 H Alkaline Phosphatase 137 H Lactate Dehydrogenase 311 H C-Reactive Protein Albumin 3.1 L Albumin/Globulin Ratio 0.9 L Procalcitonin Urine Protein 100 A Urine Glucose (UA) 150 A Urine Occult Blood >=1.0 A Urine RBC > 182 H 02/07/23 02/07/23 02/07/23 20:57 20:55 19:45 WBC RBC Hgb Hct POC Hct 38.0 L Lymph % (Auto) Bell % (Auto) Lymph # (Auto) Bell # (Auto) Absolute Neutrophils POC VBG pH 7.46 H POC VBG pCO2 at Temp 38.0 L POC Venous O2 Sat 73.0 H POC VBG Base Excess 3.0 H Sodium Carbon Dioxide POC BUN 29 H BUN Creatinine POC Creatinine 3.0 H Glucose POC Glucose 188 H Calcium POC WB Ioniz Calcium 1.08 L GGT Alkaline Phosphatase Lactate Dehydrogenase C-Reactive Protein Albumin Albumin/Globulin Ratio Procalcitonin 0.20 H Urine Protein Urine Glucose (UA) Urine Occult Blood Urine RBC 02/07/23 02/07/23 19:45 19:45 WBC RBC 4.11 L Hgb 12.5 L Hct 37.1 L POC Hct Lymph % (Auto) Bell % (Auto) 27.0 H Lymph # (Auto) 1.15 L Bell # (Auto) 1.22 H Absolute Neutrophils POC VBG pH POC VBG pCO2 at Temp POC Venous O2 Sat POC VBG Base Excess Sodium Carbon Dioxide POC BUN BUN Creatinine POC Creatinine Glucose POC Glucose Calcium POC WB Ioniz Calcium GGT Alkaline Phosphatase 156 H Lactate Dehydrogenase C-Reactive Protein Albumin Albumin/Globulin Ratio Procalcitonin Urine Protein Urine Glucose (UA) Urine Occult Blood Urine RBC Meds: Medications Acetaminophen (Acetaminophen 325 Mg Tablet) 650 mg PO Q6HP PRN; Protocol PRN Reason: Per Pain Protocol/Fever > 101 Amlodipine Besylate (Amlodipine 5 Mg Tablet) 5 mg PO DAILY [facility] Last Admin: 02/09/23 09:16 Dose: 5 mg Apixaban (Apixaban 5 Mg Tablet) 2.5 mg PO BID [facility] Last Admin: 02/09/23 09:15 Dose: 2.5 mg Aspirin (Aspirin 81 Mg Tab.Chew) 81 mg PO DAILY [facility] Last Admin: 02/09/23 09:16 Dose: 81 mg Atorvastatin Calcium (Atorvastatin 20 Mg Tablet) 20 mg PO QDAY [facility] Last Admin: 02/09/23 09:16 Dose: 20 mg Dextrose (Dextrose 50% 50 Ml Vial) 0 ml IV UD PRN PRN Reason: Per Sliding Scale Diagnostic Test (Pha) (Accu-Chek 1 Each Strip) 1 each FS ACHS [facility] Last Admin: 02/09/23 07:06 Dose: 1 each Docusate Sodium (Docusate Sodium 100 Mg Capsule) 100 mg PO BID [facility] Last Admin: 02/09/23 09:16 Dose: 100 mg Finasteride (Finasteride 5 Mg Tablet) 5 mg PO QDAY [facility] Last Admin: 02/09/23 09:16 Dose: 5 mg Fluticasone Propionate (Fluticasone Propionate Liberal.Faustino) 1 spray NS DAILYP PRN PRN Reason: allergy symptoms Gabapentin (Gabapentin 100 Mg Capsule) 300 mg PO QHS [facility] Glucose (Dextrose 31 Gm Oral.Susp) 15 gm PO PRN PRN PRN Reason: Hypoglycemia REMDESIVIR 100 mg/ Sodium (Chloride) 250 mls @ 500 mls/hr IV Q24H [facility] Stop: 02/11/23 14:29 Last Infusion: 02/08/23 17:45 Dose: Infused Insulin Human Lispro (Insulin Lispro 1 Unit/0.01 Ml Unit) 0 unit SQ [facility]; Protocol Last Admin: 02/09/23 07:07 Dose: Not Given Lactulose (Lactulose 20 Gm/30 Ml Oral.Brandi) 10 gm PO DAILYP PRN PRN Reason: Constipation Levothyroxine Sodium (Levothyroxine 100 Mcg Tablet) 100 mcg PO ACB [facility] Last Admin: 02/09/23 07:05 Dose: 100 mcg Metoprolol Succinate (Metoprolol Succinate 50 Mg Tab.Xl.24h) 50 mg PO QDAY [facility] Last Admin: 02/09/23 09:16 Dose: 50 mg Metoprolol Tartrate (Metoprolol Tartrate 5 Mg/5 Ml Vial) 5 mg IV Q4HP PRN PRN Reason: Tachyarrhythmias Ondansetron HCl (Ondansetron 4 Mg/2 Ml Vial) 4 mg IV Q4HP PRN; Protocol PRN Reason: Nausea And Vomiting Mirabegron [ Myrbetriq] 50 Mg Er Tablet 1 dose PO DAILY [facility] Last Admin: 02/09/23 09:16 Dose: Not Given Senna (Sennosides 1 Tablet) 2 tab PO HSP PRN PRN Reason: Constipation Sodium Chloride (0.9 % Sodium Chloride 10 Ml Syringe) 10 ml IV Q8 [facility] Last Admin: 02/09/23 06:07 Dose: 10 ml Tamsulosin HCl (Tamsulosin 0.4 Mg Capsule) 0.4 mg PO ACB [facility] Last Admin: 02/09/23 07:06 Dose: 0.4 mg Vitamin D (Vitamin D3 25 Mcg Tablet) 25 mcg PO DAILY [facility] Last Admin: 02/09/23 09:16 Dose: 25 mcg A/P Narrative A/P Narrative: Assessment: 82 year old male with HTN, DM, afib on Eliquis, CKD, CAD admitted for severe COVID-19 complicated by acute hypoxic respiratory failure. Symptom onset was the day prior to admission. #Resolved acute hypoxic respiratory failure #COVID-19 illness #Metabolic encephalopathy secondary to COVID with possible underlying cognitive impairment #Atrial fibrillation, rate controlled #Chronic kidney disease stage 4 #Diabetes mellitus #Hypertension #CAD Plan -Remdesivir for early COVID, symptom onset 02/06. -Discontinue dexamethasone as this can worsen confusion. -Oxygen supplementation as needed. -Discontinue IV fluid -Follow renal function. -Correction Humalog SSI medium dose. -Continue home Metoprolol, Eliquis, aspirin, atorvastatin, Proscar, gabapentin, mirabegron, Flomax. 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 -PT and OT. -Diabetic diet. -DVT prophylaxis: home Eliquis. -CODE STATUS: Full -Disposition: Currently inpatient PCU, discharge disposition to be determined. Time Spent With Patient Time: Total time spent is greater than 50% in coordination of care (as documented) at patient's floor/unit and/or counseling patient:
[2023-02-09] MEDS: REMDESIVIR 100 MG in 0.9 % SODIUM CHLORIDE 250 ML IV SCH (14:30)
[2023-02-09] MEDS: GABAPENTIN 100 MG CAPSULE PO SCH (20:52)
[2023-02-10] MEDS: 0.9 % SODIUM CHLORIDE 10 ML SYRINGE IV SCH ×3 (06:32→21:12)
[2023-02-10 06:47] LABS: ALT/SGPT 17 U/L (<40); AST/SGOT 41 U/L (<40); Albumin 2.8 gm/dL (3.2-5.2); Albumin/Globulin Ratio 0.9 (1.0-2.3); Alkaline Phosphatase 118 U/L (39-117); Bilirubin,Direct < 0.2 mg/dL (0-0.3); Bilirubin,Total 0.4 mg/dL (0.1-1.0); Blood Urea Nitrogen 46 mg/dL (8-23); Calcium 8.3 mg/dL (8.6-10.4); Carbon Dioxide 21 mmol/L (22-30); Chloride 97 mmol/L (96-108); Globulin 3.1 gm/dL (2.2-3.7); Glomerular Filtration Rate 30; Glucose 132 mg/dL (70-105); Lactate Dehydrogenase 323 U/L (135-225); Phosphorous 3.8 mg/dL (2.5-4.5); Triglycerides 122 mg/dL (<150); Uric Acid 5.6 mg/dL (2.5-8.0)
[2023-02-10] MEDS: INSULIN LISPRO 1 UNIT/0.01 ML UNIT SQ SCH ×4 (07:39→21:11)
[2023-02-10] MEDS: MIRABEGRON 50 MG PO SCH (07:40)
[2023-02-10] MEDS: ATORVASTATIN 20 MG TABLET PO SCH (09:12)
[2023-02-10] MEDS: TAMSULOSIN 0.4 MG CAPSULE PO SCH (09:12)
[2023-02-10] MEDS: METOPROLOL SUCCINATE 50 MG TAB.XL.24H PO SCH (09:12)
[2023-02-10] MEDS: amLODIPine 5 MG TABLET PO SCH (09:12)
[2023-02-10] MEDS: ASPIRIN 81 MG TAB.CHEW PO SCH (09:13)
[2023-02-10] MEDS: APIXABAN 5 MG TABLET PO SCH ×2 (09:13→20:49)
[2023-02-10] MEDS: FINASTERIDE 5 MG TABLET PO SCH (09:13)
[2023-02-10] MEDS: DOCUSATE SODIUM 100 MG CAPSULE PO SCH ×2 (09:13→20:50)
[2023-02-10] MEDS: VITAMIN D3 25 MCG TABLET PO SCH (09:13)
[2023-02-10] MEDS: LEVOTHYROXINE 100 MCG TABLET PO SCH (09:13)
--- NOTE | 2023-02-10 13:50 | Internal Med Progress Note ---
SUBJECTIVE Subjective Patient information: Note initiated : 02/10/23 at 1:47 pm Service Date, if different from initiated Date: [] Patient: Collin Clinton 82 y/o M admitted on 02/08/23 for weakness/ ams/vomiting. Chief Complaint: [] Interval history: Mr. Clinton is a 82 year old male with a history of hypertension, diabetes mellitus, atrial fibrillation, chronic kidney disease stage IV, coronary artery disease who developed generalized weakness was brought to the emergency department on 02/06/2023 and found to have COVID. Patient was discharged home however returned to the hospital with worsening of symptoms and an oxygen requirement of about 2 L/min. Hospital medicine was consulted for admission. 5/ Blood pressures moderately elevated overnight, on room air this morning. No fevers overnight. The patient is more confused than his baseline according to family members however alert and oriented x3 for staff. Discontinued dexamethasone as this can contribute to confusion, continuing remdesivir. Discontinued IV fluid. Resumed home Toprol and Eliquis, added Norvasc for elevated blood pressure. Family visited the patient in the room, did not feel comfortable taking the patient home due to his confusion. 58 Vital stable overnight, on room air this morning. Mental status has improved. Completed 3 days of remdesivir. Family considering taking the patient home with home health. Physical exam Head: Atraumatic, normal inspection. Eyes: normal appearance, no scleral icterus. Neck: full ROM Respiratory: On room air, no respiratory distress. Cardiovascular: normal rate and rhythm, S1, S2. GI/Abdominal: soft, nontender, no guarding. Extremities: full range of motion, nontender. Neurological: CN II-XII intact, intact motor, intact sensation. Psychiatric: Improved cognition Skin: warm, normal color Constitutional Vitals: Vital Signs Temp Pulse Resp BP Pulse Ox O2 Del Method O2 Flow Rate 96.8 F L 85 17 117/94 99 Room Air 1 02/10/23 11:57 02/10/23 11:57 02/10/23 11:57 02/10/23 11:57 02/10/23 11:57 02/10/23 11:57 02/10/23 05:16 Period Temp Pulse Resp BP Sys/Spencer Pulse Ox O2 Del Method O2 Flow Rate Last 24 Hr 96.8 F-97.9 F 64-85 16-18 103-178/84-112 89-100 Nasal Cannula- Room Air 1-1 Intake and Output 02/10/23 02/10/23 02/10/23 03:59 11:59 19:59 Intake Total 600 480 480 Output Total 1520 400 325 Balance -920 80 155 Weight 82.463 kg Patient Weight 02/11/23 03:59 Weight 82.463 kg Intake & Output: Intake & Output 02/10/23 02/10/23 02/10/23 03:59 11:59 19:59 Intake Total 600 480 480 Output Total 1520 400 325 Balance -920 80 155 Weight 82.463 kg Intake: Oral 600 480 480 Output: Void Amount 1520 400 325 Other: Meal NO appetite Feeding Ability Independent Urine Appearance Clear Clear Clear Urine Color Yellow Yellow Yellow Pale Pale Urine Odor Normal Normal OBJ DATA Labs 02/09/23 05:23 02/10/23 05:45 Labs: Abnormal Lab Results 02/10/23 02/09/23 02/09/23 05:45 05:24 05:23 WBC RBC 3.80 L Hgb 11.4 L Hct 35.0 L POC Hct Lymph % (Auto) 15.3 L Tucker % (Auto) 34.2 H Lymph # (Auto) 0.73 L Tucker # (Auto) 1.63 H Absolute Neutrophils POC VBG pH POC VBG pCO2 at Temp POC Venous O2 Sat POC VBG Base Excess Sodium 131 L 130 L Carbon Dioxide 21 L 21 L POC BUN BUN 46 H 40 H Creatinine 2.0 H 2.1 H POC Creatinine Glucose 132 H 140 H POC Glucose Calcium 8.3 L 7.9 L POC WB Ioniz Calcium GGT 82 H 80 H AST 41 H Alkaline Phosphatase 118 H 119 H Lactate Dehydrogenase 323 H 287 H C-Reactive Protein Albumin 2.8 L 2.8 L Albumin/Globulin Ratio 0.9 L 0.9 L Procalcitonin Urine Protein Urine Glucose (UA) Urine Occult Blood Urine RBC 02/08/23 02/08/23 02/08/23 07:45 04:28 04:27 WBC 2.1 L RBC 3.92 L Hgb 11.8 L Hct 35.9 L POC Hct Lymph % (Auto) Tucker % (Auto) Lymph # (Auto) 0.50 L Tucker # (Auto) Absolute Neutrophils 1.43 L POC VBG pH POC VBG pCO2 at Temp POC Venous O2 Sat POC VBG Base Excess Sodium Carbon Dioxide POC BUN BUN 30 H Creatinine 2.4 H POC Creatinine Glucose 204 H POC Glucose Calcium 8.2 L POC WB Ioniz Calcium GGT 86 H AST Alkaline Phosphatase 137 H Lactate Dehydrogenase 311 H C-Reactive Protein 7.60 H Albumin 3.1 L Albumin/Globulin Ratio 0.9 L Procalcitonin Urine Protein Urine Glucose (UA) Urine Occult Blood Urine RBC 02/07/23 02/07/23 02/07/23 21:37 20:57 20:55 WBC RBC Hgb Hct POC Hct 38.0 L Lymph % (Auto) Tucker % (Auto) Lymph # (Auto) Tucker # (Auto) Absolute Neutrophils POC VBG pH 7.46 H POC VBG pCO2 at Temp 38.0 L POC Venous O2 Sat 73.0 H POC VBG Base Excess 3.0 H Sodium Carbon Dioxide POC BUN 29 H BUN Creatinine POC Creatinine 3.0 H Glucose POC Glucose 188 H Calcium POC WB Ioniz Calcium 1.08 L GGT AST Alkaline Phosphatase Lactate Dehydrogenase C-Reactive Protein Albumin Albumin/Globulin Ratio Procalcitonin Urine Protein 100 A Urine Glucose (UA) 150 A Urine Occult Blood >=1.0 A Urine RBC > 182 H 02/07/23 02/07/23 02/07/23 19:45 19:45 19:45 WBC RBC 4.11 L Hgb 12.5 L Hct 37.1 L POC Hct Lymph % (Auto) Tucker % (Auto) 27.0 H Lymph # (Auto) 1.15 L Tucker # (Auto) 1.22 H Absolute Neutrophils POC VBG pH POC VBG pCO2 at Temp POC Venous O2 Sat POC VBG Base Excess Sodium Carbon Dioxide POC BUN BUN Creatinine POC Creatinine Glucose POC Glucose Calcium POC WB Ioniz Calcium GGT AST Alkaline Phosphatase 156 H Lactate Dehydrogenase C-Reactive Protein Albumin Albumin/Globulin Ratio Procalcitonin 0.20 H Urine Protein Urine Glucose (UA) Urine Occult Blood Urine RBC Meds: Medications Acetaminophen (Acetaminophen 325 Mg Tablet) 650 mg PO Q6HP PRN; Protocol PRN Reason: Per Pain Protocol/Fever > 101 Amlodipine Besylate (Amlodipine 5 Mg Tablet) 5 mg PO DAILY [facility] Last Admin: 02/10/23 09:12 Dose: 5 mg Apixaban (Apixaban 5 Mg Tablet) 2.5 mg PO BID [facility] Last Admin: 02/10/23 09:13 Dose: 2.5 mg Aspirin (Aspirin 81 Mg Tab.Chew) 81 mg PO DAILY [facility] Last Admin: 02/10/23 09:13 Dose: 81 mg Atorvastatin Calcium (Atorvastatin 20 Mg Tablet) 20 mg PO QDAY [facility] Last Admin: 02/10/23 09:12 Dose: 20 mg Dextrose (Dextrose 50% 50 Ml Vial) 0 ml IV UD PRN PRN Reason: Per Sliding Scale Diagnostic Test (Pha) (Accu-Chek 1 Each Strip) 1 each FS [facility] Last Admin: 02/10/23 12:09 Dose: 1 each Docusate Sodium (Docusate Sodium 100 Mg Capsule) 100 mg PO BID [facility] Last Admin: 02/10/23 09:13 Dose: 100 mg Finasteride (Finasteride 5 Mg Tablet) 5 mg PO QDAY [facility] Last Admin: 02/10/23 09:13 Dose: 5 mg Fluticasone Propionate (Fluticasone Propionate [place].Faustino) 1 spray NS DAILYP PRN PRN Reason: allergy symptoms Gabapentin (Gabapentin 100 Mg Capsule) 300 mg PO QHS [facility] Last Admin: 02/09/23 20:52 Dose: 300 mg Glucose (Dextrose 31 Gm Oral.Susp) 15 gm PO PRN PRN PRN Reason: Hypoglycemia Insulin Human Lispro (Insulin Lispro 1 Unit/0.01 Ml Unit) 0 unit SQ [facility]; Protocol Last Admin: 02/10/23 12:08 Dose: 6 units Lactulose (Lactulose 20 Gm/30 Ml Oral.Brandi) 10 gm PO DAILYP PRN PRN Reason: Constipation Levothyroxine Sodium (Levothyroxine 100 Mcg Tablet) 100 mcg PO ACB [facility] Last Admin: 02/10/23 09:13 Dose: 100 mcg Metoprolol Succinate (Metoprolol Succinate 50 Mg Tab.Xl.24h) 50 mg PO QDAY [facility] Last Admin: 02/10/23 09:12 Dose: 50 mg Metoprolol Tartrate (Metoprolol Tartrate 5 Mg/5 Ml Vial) 5 mg IV Q4HP PRN PRN Reason: Tachyarrhythmias Ondansetron HCl (Ondansetron 4 Mg/2 Ml Vial) 4 mg IV Q4HP PRN; Protocol PRN Reason: Nausea And Vomiting Mirabegron [ Myrbetriq] 50 Mg Er Tablet 1 dose PO DAILY [facility] Last Admin: 02/10/23 07:40 Dose: Not Given Senna (Sennosides 1 Tablet) 2 tab PO HSP PRN PRN Reason: Constipation Sodium Chloride (0.9 % Sodium Chloride 10 Ml Syringe) 10 ml IV Q8 [facility] Last Admin: 02/10/23 13:30 Dose: 10 ml Tamsulosin HCl (Tamsulosin 0.4 Mg Capsule) 0.4 mg PO ACB [facility] Last Admin: 02/10/23 09:12 Dose: 0.4 mg Vitamin D (Vitamin D3 25 Mcg Tablet) 25 mcg PO DAILY [facility] Last Admin: 02/10/23 09:13 Dose: 25 mcg A/P Narrative A/P Narrative: Assessment: 82 year old male with HTN, DM, afib on Eliquis, CKD, CAD admitted for severe COVID-19 complicated by acute hypoxic respiratory failure. Symptom onset was the day prior to admission. #Resolved acute hypoxic respiratory failure #COVID-19 illness #Metabolic encephalopathy secondary to COVID #Probable chronic moderate to severe cognitive impairment #Atrial fibrillation, rate controlled #Chronic kidney disease stage 4 #Diabetes mellitus #Hypertension #CAD Plan -Completed 3 days of remdesivir remdesivir for early COVID. -Discontinued dexamethasone as it was likely causing worsening confusion. -Correction Humalog SSI medium dose. -Continue home Metoprolol, Eliquis, aspirin, atorvastatin, Proscar, gabapentin, mirabegron, Flomax. -gambling monitor. -PT and OT. -Diabetic diet. -DVT prophylaxis: home Eliquis. -CODE STATUS: Full -Disposition: Currently inpatient PCU, discharge disposition will probably be home with home health. Time Spent With Patient Time: Total time spent is greater than 50% in coordination of care (as documented) at patient's floor/unit and/or counseling patient:
[2023-02-10 14:38] LABS: Basophils # (Auto) 0 K/mcL (0.00-0.30); Basophils % (Auto) 0 % (0.0-2.0); Eosinophils # (Auto) 0 K/mcL (0.00-0.70); Eosinophils % (Auto) 0 % (0.0-7.0); Hematocrit 40.2 % (40.1-51.0); Hemoglobin 12.7 g/dL (13.7-17.5); Lymphocytes # (Auto) 0.85 K/mcL (1.50-4.80); Lymphocytes % (Auto) 21.7 % (15.5-49.0); Mean Cell Volume 94.4 fL (80.0-100.0); Mean Corpuscular HGB Conc 31.6 g/dL (31.0-36.0); Mean Platelet Volume 11.7 fL (8.8-12.5); Monocytes # (Auto) 0.84 K/mcL (0.10-0.90); Monocytes % (Auto) 21.5 % (1.0-12.0); Neutrophils % (Auto) 56.3 % (38.0-78.0); Platelet Count 182 K/mcL (140-440); RBC 4.26 M/mcL (4.63-6.08); Red Cell Distribution Width 13.6 % (11.5-14.5); WBC 3.9 K/mcL (4.5-11.0)
[2023-02-10] MEDS: GABAPENTIN 100 MG CAPSULE PO SCH (20:50)
[2023-02-11] MEDS: 0.9 % SODIUM CHLORIDE 10 ML SYRINGE IV SCH (05:46)
[2023-02-11 06:58] LABS: ALT/SGPT 20 U/L (<40); AST/SGOT 35 U/L (<40); Bilirubin,Direct < 0.2 mg/dL (0-0.3); Bilirubin,Total 0.4 mg/dL (0.1-1.0); Blood Urea Nitrogen 58 mg/dL (8-23); Calcium 7.9 mg/dL (8.6-10.4); Carbon Dioxide 26 mmol/L (22-30); Chloride 97 mmol/L (96-108); Glucose 102 mg/dL (70-105); Lactate Dehydrogenase 277 U/L (135-225); Phosphorous 3.8 mg/dL (2.5-4.5); Uric Acid 6.4 mg/dL (2.5-8.0)
[2023-02-11 06:59] LABS: Alkaline Phosphatase 124 U/L (39-117); Glomerular Filtration Rate 23; Triglycerides 199 mg/dL (<150)
[2023-02-11] MEDS: INSULIN LISPRO 1 UNIT/0.01 ML UNIT SQ SCH ×2 (07:36→12:04)
[2023-02-11] MEDS ORDERED: POTASSIUM CHLORIDE 20 MEQ TABLET PO ONE (08:05)
[2023-02-11] MEDS: TAMSULOSIN 0.4 MG CAPSULE PO SCH (09:42)
[2023-02-11] MEDS: DOCUSATE SODIUM 100 MG CAPSULE PO SCH (09:43)
[2023-02-11] MEDS: FINASTERIDE 5 MG TABLET PO SCH (09:43)
[2023-02-11] MEDS: METOPROLOL SUCCINATE 50 MG TAB.XL.24H PO SCH (09:43)
[2023-02-11] MEDS: APIXABAN 5 MG TABLET PO SCH (09:43)
[2023-02-11] MEDS: ASPIRIN 81 MG TAB.CHEW PO SCH (09:43)
[2023-02-11] MEDS: amLODIPine 5 MG TABLET PO SCH (09:43)
[2023-02-11] MEDS: ATORVASTATIN 20 MG TABLET PO SCH (09:43)
[2023-02-11] MEDS: VITAMIN D3 25 MCG TABLET PO SCH (09:43)
[2023-02-11] MEDS: MIRABEGRON 50 MG PO SCH (09:47)
[2023-02-11] MEDS: LEVOTHYROXINE 100 MCG TABLET PO SCH (09:52)
--- NOTE | 2023-02-11 10:58 | Discharge Summary ---
Discharge Provider Provider IMPORTANT FOLLOW-UP INFORMATION FOR PCP: Patient information: Note initiated : 02/11/23 at 10:57 am Service Date, if different from initiated Date: [] Patient: Collin Clinton 82 y/o M admitted on 02/08/23 for weakness/ams/vomiting. Chief Complaint: [] Date of admission: 02/08/23 00:15 Discharge date: 02/11/23 Primary care physician: Pk Martinez DO Consults: 02/07/23 Consult to Physician [CONS] Stat Comment: Consulting Provider: Reddy Cabrera Reason For Exam: Physician to Consult 02/07/23 22:32 Consult to Physician [CONS] Stat Comment: Consulting Provider: Reddy Cabrera Reason For Exam: Physician to Consult COURSE Hospital Course Hospital course: Mr. Clinton is a 82 year old male with a history of hypertension, diabetes mellitus, atrial fibrillation, chronic kidney disease stage IV, coronary artery disease who developed generalized weakness was brought to the emergency department on 02/06/2023 and found to have COVID. Patient was discharged home however returned to the hospital with worsening of symptoms and an oxygen requirement of about 2 L/min. Hospital medicine was consulted for admission. 5/ Blood pressures moderately elevated overnight, on room air this morning. No fevers overnight. The patient is more confused than his baseline according to family members however alert and oriented x3 for staff. Discontinued d examethasone as this can contribute to confusion, continuing remdesivir. Discontinued IV fluid. Resumed home Toprol and Eliquis, added Norvasc for elevated blood pressure. Family visited the patient in the room, did not feel comfortable taking the patient home due to his confusion. 02/10 Vital stable overnight, on room air this morning. Mental status has improved. Completed 3 days of remdesivir. Family considering taking the patient home with home health. 02/11 Vital stable overnight, the patient's cognition has improved significantly. He is independent in the room and wants to go home. Plan is to discharge the patient home with home health. At discharge, I continued Norvasc which was started this hospitalization and did not resume losartan at discharge. Physical exam Head: Atraumatic, normal inspection. Eyes: normal appearance, no scleral icterus. Neck: full ROM Respiratory: On room air, no respiratory distress. Cardiovascular: normal rate and rhythm, S1, S2. GI/Abdominal: soft, nontender, no guarding. Extremities: full range of motion, nontender. Neurological: CN II-XII intact, intact motor, intact sensation. Psychiatric: Improved cognition Skin: warm, normal color Discharge diagnosis: COVID-19 Secondary discharge diagnosis: Metabolic encephalopathy secondary to COVID Time Spent with Patient Time attestation: Total time spent providing and/or coordinating discharge services: Time spent: Greater than 30 minutes EXAM Constitutional Vitals: Temp Pulse Resp BP Pulse Ox O2 Del Method O2 Flow Rate 97.1 F 63 16 141/102 96 Room Air 1 02/11/23 07:00 02/11/23 07:00 02/11/23 07:00 02/11/23 07:00 02/11/23 07:00 02/11/23 07:00 02/10/23 05:16 Discharge Data Data Completed and Pending Labs on day of discharge: Labs from last 24 hours 02/11/23 02/10/23 05:02 05:44 WBC 3.9 L RBC 4.26 L Hgb 12.7 L Hct 40.2 MCV 94.4 MCH 29.8 MCHC 31.6 RDW 13.6 Plt Count 182 MPV 11.7 Immature Gran % (Auto) 0.5 Neut % (Auto) 56.3 Lymph % (Auto) 21.7 [place] % (Auto) 21.5 H Eos % (Auto) 0 Baso % (Auto) 0 Lymph # (Auto) 0.85 L [place] # (Auto) 0.84 Eos # (Auto) 0 Baso # (Auto) 0 Immature Gran # 0.02 Absolute Neutrophils 2.20 Sodium 135 Potassium 3.2 L Chloride 97 Carbon Dioxide 26 Anion Gap 12.0 BUN 58 H Creatinine 2.5 H GFR Calculation 23 Glucose 102 Uric Acid 6.4 Calcium 7.9 L Phosphorus 3.8 Magnesium 2.1 Total Bilirubin 0.4 Direct Bilirubin < 0.2 GGT 87 H AST 35 ALT 20 Alkaline Phosphatase 124 H Lactate Dehydrogenase 277 H Total Protein 6.0 Albumin 3.0 L Globulin 3.0 Albumin/Globulin Ratio 1.0 Triglycerides 199 H Preliminary micro results at discharge 02/07/23 22:45 Blood Culture - Preliminary Blood 02/07/23 22:42 Blood Culture - Preliminary Blood Discharge Plan Patient/Caregiver Discharge Instructions Activity: increase activity as tolerated Diet: Consistent Carbohydrate Prescriptions: New amlodipine 5 mg Tablet 5 mg PO DAILY Qty: 60 4RF Continued atorvastatin 20 mg tablet 20 mg PO QDAY Qty: 90 3RF finasteride 5 mg tablet 5 mg PO QDAY Qty: 90 3RF levothyroxine 100 mcg tablet 100 mcg PO QDAY Qty: 90 3RF multivitamin capsule 1 tab-cap PO QDAY Eliquis 2.5 mg tablet 2.5 mg PO BID Qty: 180 3RF tamsulosin 0.4 mg capsule 0.4 mg PO Q24H Qty: 90 3RF Rx Instructions: administer 30 minutes before same meal each day; swallow whole with liquid; do not crush/chew /dissolve /open aspirin 81 mg tablet,chewable 81 mg PO QDAY cholecalciferol (vitamin D3) 50 mcg (2,000 unit) capsule 1,000 unit PO QDAY omega-3 fatty acids [Fish Oil Concentrate] 1,000 mg capsule 1,000 mg PO BID gabapentin 100 mg capsule 300 mg PO QHS calcium carbonate 600 mg calcium (1,500 mg) tablet 600 mg PO QDAY Myrbetriq 50 mg tablet extended release 24 hr 50 mg PO QDAY laxiclear 1 dose PO PRN (Reason: Constipation) metoprolol succinate 50 mg tablet extended release 24 hr 50 mg PO QDAY Qty: 90 3RF fluticasone propionate 50 mcg/actuation spray,suspension 1 spray intranasal QDAY PRN (Reason: allergy symptoms) Qty: 16 0RF Rx Instructions: administer into each nostril Discontinued losartan 25 mg tablet 25 mg PO QDAY Qty: 90 3RF Follow Up Plan Follow up with: Pk Martinez DO [Primary Care Provider] - (Your Primary care Physician will contact you to schedule an appointment. ) Patient Disposition: Home Health Service Prognosis: Fair Overall status at discharge: patient is progressing back to baseline Discharge Orders: Discharge Order (Routine); Ordered 02/11/23 Ordered By: Reddy Cabrera
== END 2023-02-11 13:21 | disposition home health service (06) | DRG 177 ==
LOC: ED 20:39 → ICU 02-08 00:15
PROVIDERS: ADMIT Internal Medicine; ATTEND Internal Medicine

== ENCOUNTER 2023-11-11 11:49 | Inpatient (IN) ==
[2023-11-11 12:43] LABS: POC Calcium, Ionized 1.12 (1.16-1.32); POC Creatinine 2.6 (0.6-1.2); POC Potassium 4.1 (3.3-5.1)
[2023-11-11 12:58] LABS: Basophils # (Auto) 0.05 K/mcL (0.00-0.30); Basophils % (Auto) 0.8 % (0.0-2.0); Eosinophils # (Auto) 0.02 K/mcL (0.00-0.70); Eosinophils % (Auto) 0.3 % (0.0-7.0); Hematocrit 30.9 % (40.1-51.0); Hemoglobin 8.9 g/dL (13.7-17.5); Lymphocytes # (Auto) 1.05 K/mcL (1.50-4.80); Lymphocytes % (Auto) 16.7 % (15.5-49.0); Mean Corpuscular HGB Conc 28.8 g/dL (31.0-36.0); Mean Platelet Volume 13.1 fL (8.8-12.5); Monocytes % (Auto) 17.5 % (1.0-12.0); Neutrophils % (Auto) 63.6 % (38.0-78.0); Platelet Count 93 K/mcL (140-440); RBC 3.12 M/mcL (4.63-6.08); Red Cell Distribution Width 18.4 % (11.5-14.5); WBC 6.3 K/mcL (4.5-11.0)
[2023-11-11] MEDS: FUROSEMIDE 40 MG/4 ML VIAL IV ONE (15:55)
[2023-11-11] MEDS: METOPROLOL TARTRATE 5 MG/5 ML VIAL IV ONE (15:55)
[2023-11-11] MEDS ORDERED: POTASSIUM CHLORIDE 20 MEQ TABLET PO PRN ×2 (17:25)
[2023-11-11] MEDS ORDERED: SENNOSIDES 1 TABLET PO PRN (17:25)
[2023-11-11] MEDS ORDERED: METOPROLOL TARTRATE 5 MG/5 ML VIAL IV PRN (17:25)
[2023-11-11] MEDS ORDERED: MAGNESIUM SULFATE 2 GM/50 ML BAG IV PRN (17:25)
[2023-11-11] MEDS ORDERED: DEXTROSE 50% 50 ML VIAL IV PRN (17:25)
[2023-11-11] MEDS ORDERED: IPRATROPIUM/ALBUTEROL 3 ML AMPUL.NEB NEB PRN (17:25)
[2023-11-11] MEDS ORDERED: POTASSIUM CHLORIDE 40 MEQ in DEXTROSE 5% IN WATER 500 ML IV PRN (17:25)
[2023-11-11] MEDS ORDERED: ONDANSETRON 4 MG/2 ML VIAL IV PRN (17:25)
[2023-11-11] MEDS ORDERED: DEXTROSE 31 GM ORAL.SUSP PO PRN (17:25)
[2023-11-11] MEDS ORDERED: POLYETHYLENE GLYCOL 3350 17 GM PACKET PO PRN (17:25)
[2023-11-11] MEDS: ENALAPRILAT 1.25 MG/ML VIAL IV PRN (17:32)
[2023-11-11] MEDS: INSULIN LISPRO 1 UNIT/0.01 ML UNIT SQ SCH (17:37)
[2023-11-11] MEDS: NITROGLYCERIN 1 GM OINT.TOP TD ONE (17:41)
[2023-11-11] MEDS: ACETAMINOPHEN 325 MG TABLET PO PRN (19:15)
[2023-11-11] MEDS: 0.9 % SODIUM CHLORIDE 10 ML SYRINGE IV SCH (20:05)
[2023-11-11] MEDS: DOCUSATE SODIUM 100 MG CAPSULE PO SCH (21:32)
[2023-11-11] MEDS: LOSARTAN 50 MG TABLET PO SCH (21:32)
[2023-11-11] MEDS: PREGABALIN 150 MG CAPSULE PO ONE (21:32)
[2023-11-11] MEDS: hydrALAZINE 10 MG TABLET PO SCH (21:34)
[2023-11-11 22:19] LABS: Appearance,Urine Clear (Clear); Bilirubin,Urine Negative (Negative); Color,Urine Yellow; Culture Indicated,Urine No; Glucose,Urine (UA) Negative (Negative); Ketones,Urine Negative (Negative); Leukocyte Esterase,Urine Negative /uL (Negative); Nitrate,Urine Negative (Negative); Protein,Urine 100 mg/dL (Negative); Urine Blood Moderate ery/mcL (Negative); Urine Hyaline Cast 2 /lph (0-2); Urine RBC 20 /hpf (0-3); Urine Squamous Epithelial Cell 2 /hpf (0-4); Urine WBC 2 /hpf (0-4); Urobilinogen,Urine Normal
[2023-11-11] MEDS: HYDROcodone/APAP 5/325MG TABLET PO PRN (23:53)
[2023-11-12] MEDS: FUROSEMIDE 40 MG/4 ML VIAL IV SCH (00:20)
[2023-11-12 06:22] LABS: Basophils # (Auto) 0.01 K/mcL (0.00-0.30); Basophils % (Auto) 0.1 % (0.0-2.0); Eosinophils # (Auto) 0.01 K/mcL (0.00-0.70); Eosinophils % (Auto) 0.1 % (0.0-7.0); Hematocrit 26.2 % (40.1-51.0); Hemoglobin 7.7 g/dL (13.7-17.5); Lymphocytes # (Auto) 1.67 K/mcL (1.50-4.80); Lymphocytes % (Auto) 21.7 % (15.5-49.0); Mean Cell Volume 97.4 fL (80.0-100.0); Mean Corpuscular HGB Conc 29.4 g/dL (31.0-36.0); Mean Platelet Volume 13.1 fL (8.8-12.5); Monocytes # (Auto) 2.09 K/mcL (0.10-0.90); Monocytes % (Auto) 27.2 % (1.0-12.0); Neutrophils % (Auto) 50.4 % (38.0-78.0); Platelet Count 77 K/mcL (140-440); RBC 2.69 M/mcL (4.63-6.08); Red Cell Distribution Width 18.9 % (11.5-14.5); WBC 7.7 K/mcL (4.5-11.0)
[2023-11-12 06:42] LABS: ALT/SGPT < 5 U/L (<40); AST/SGOT 20 U/L (<40); Albumin 2.9 gm/dL (3.2-5.2); Albumin/Globulin Ratio 1.1 (1.0-2.3); Alkaline Phosphatase 108 U/L (39-117); Bilirubin,Direct 0.5 mg/dL (<0.3); Blood Urea Nitrogen 24 mg/dL (8-23); Calcium 8.4 mg/dL (8.6-10.4); Carbon Dioxide 30 mmol/L (22-30); Chloride 104 mmol/L (96-108); Globulin 2.7 gm/dL (2.2-3.7); Glomerular Filtration Rate 22; Glucose 103 mg/dL (70-105); Lactate Dehydrogenase 252 U/L (135-225); Phosphorous 4.6 mg/dL (2.5-4.5); Triglycerides 83 mg/dL (<150); Uric Acid 7.5 mg/dL (2.5-8.0)
[2023-11-12] MEDS: LEVOTHYROXINE 100 MCG TABLET PO SCH (07:37)
[2023-11-12] MEDS: PREGABALIN 150 MG CAPSULE PO SCH (08:09)
[2023-11-12] MEDS: TAMSULOSIN 0.4 MG CAPSULE PO SCH (08:09)
[2023-11-12] MEDS: METOPROLOL SUCCINATE 50 MG TAB.XL.24H PO SCH (08:09)
[2023-11-12] MEDS: FINASTERIDE 5 MG TABLET PO SCH (08:10)
[2023-11-12] MEDS: APIXABAN 2.5 MG TABLET PO SCH (08:10)
[2023-11-12] MEDS: ALBUMIN HUMAN 12.5 GM/50 ML VIAL IV ONE (09:31)
[2023-11-13 06:31] LABS: ALT/SGPT < 5 U/L (<40); AST/SGOT 21 U/L (<40); Albumin 3.2 gm/dL (3.2-5.2); Albumin/Globulin Ratio 1.1 (1.0-2.3); Alkaline Phosphatase 105 U/L (39-117); Bilirubin,Direct 0.5 mg/dL (<0.3); Bilirubin,Total 1.1 mg/dL (0.1-1.0); Blood Urea Nitrogen 31 mg/dL (8-23); Calcium 8.5 mg/dL (8.6-10.4); Carbon Dioxide 31 mmol/L (22-30); Chloride 98 mmol/L (96-108); Globulin 2.9 gm/dL (2.2-3.7); Glomerular Filtration Rate 22; Glucose 122 mg/dL (70-105); Lactate Dehydrogenase 249 U/L (135-225); Phosphorous 4.3 mg/dL (2.5-4.5); Triglycerides 103 mg/dL (<150); Uric Acid 7.1 mg/dL (2.5-8.0)
[2023-11-13 07:27] LABS: Basophils # (Auto) 0.03 K/mcL (0.00-0.30); Basophils % (Auto) 0.3 % (0.0-2.0); Eosinophils # (Auto) 0.02 K/mcL (0.00-0.70); Eosinophils % (Auto) 0.2 % (0.0-7.0); Hematocrit 30.9 % (40.1-51.0); Hemoglobin 8.6 g/dL (13.7-17.5); Lymphocytes # (Auto) 1.75 K/mcL (1.50-4.80); Mean Corpuscular HGB Conc 27.8 g/dL (31.0-36.0); Mean Platelet Volume 12.9 fL (8.8-12.5); Monocytes # (Auto) 2.51 K/mcL (0.10-0.90); Monocytes % (Auto) 28.7 % (1.0-12.0); Neutrophils % (Auto) 49.4 % (38.0-78.0); Platelet Count 92 K/mcL (140-440); Red Cell Distribution Width 18.9 % (11.5-14.5); WBC 8.8 K/mcL (4.5-11.0)
[2023-11-13 08:59] LABS: Anisocytosis 2+ (None Seen); Lymphocytes % 23 % (15-49); Macrocytosis 1+ (None Seen); Monocytes % (Manual) 20 % (1-12); Platelet Estimate DECREASED (Normal); Polychromasia FEW (None Seen); RBC Morphology ABNORMAL (Normal); Reactive Lymphocytes 4 % (0-2); Segmented Neutrophils % 53 % (38-78)
[2023-11-13] MEDS: ATORVASTATIN 20 MG TABLET PO SCH (09:29)
[2023-11-13] MEDS ORDERED: VANCOMYCIN PER PHARMACY IV SCH (10:05)
[2023-11-13 10:31] LABS: Appearance,Urine Clear (Clear); Bacteria,Urine 0 /hpf (0); Bilirubin,Urine Negative (Negative); Color,Urine Yellow; Culture Indicated,Urine No; Glucose,Urine (UA) Negative (Negative); Ketones,Urine Negative (Negative); Leukocyte Esterase,Urine Negative /uL (Negative); Nitrate,Urine Negative (Negative); Protein,Urine 100 mg/dL (Negative); Urine Blood Large ery/mcL (Negative); Urine RBC 50 /hpf (0-3); Urine Squamous Epithelial Cell 0 /hpf (0-4); Urine WBC 1 /hpf (0-4); Urobilinogen,Urine Normal
[2023-11-13] MEDS: cefTRIAXone 1 GM VIAL IV SCH (11:11)
[2023-11-13] MEDS: VANCOMYCIN 1,500 MG in 0.9 % SODIUM CHLORIDE 500 ML IV ONE (11:11)
[2023-11-14 07:14] LABS: Vancomycin,Random 10.5 ug/mL
[2023-11-14 07:17] LABS: ALT/SGPT < 5 U/L (<40); AST/SGOT 20 U/L (<40); Albumin 2.8 gm/dL (3.2-5.2); Alkaline Phosphatase 94 U/L (39-117); Bilirubin,Direct 0.4 mg/dL (<0.3); Bilirubin,Total 0.7 mg/dL (0.1-1.0); Blood Urea Nitrogen 35 mg/dL (8-23); Calcium 8.1 mg/dL (8.6-10.4); Carbon Dioxide 30 mmol/L (22-30); Chloride 98 mmol/L (96-108); Globulin 2.8 gm/dL (2.2-3.7); Glomerular Filtration Rate 22; Glucose 117 mg/dL (70-105); Lactate Dehydrogenase 217 U/L (135-225); Phosphorous 3.8 mg/dL (2.5-4.5); Triglycerides 96 mg/dL (<150); Uric Acid 7.2 mg/dL (2.5-8.0)
[2023-11-14 07:51] LABS: Basophils # (Auto) 0.04 K/mcL (0.00-0.30); Basophils % (Auto) 0.6 % (0.0-2.0); Eosinophils # (Auto) 0.05 K/mcL (0.00-0.70); Eosinophils % (Auto) 0.7 % (0.0-7.0); Hematocrit 27.5 % (40.1-51.0); Hemoglobin 8.1 g/dL (13.7-17.5); Lymphocytes # (Auto) 1.46 K/mcL (1.50-4.80); Lymphocytes % (Auto) 20.7 % (15.5-49.0); Mean Cell Volume 97.2 fL (80.0-100.0); Mean Corpuscular HGB Conc 29.5 g/dL (31.0-36.0); Mean Platelet Volume 12.6 fL (8.8-12.5); Monocytes # (Auto) 1.82 K/mcL (0.10-0.90); Monocytes % (Auto) 25.8 % (1.0-12.0); Neutrophils % (Auto) 51.6 % (38.0-78.0); Platelet Count 108 K/mcL (140-440); RBC 2.83 M/mcL (4.63-6.08); Red Cell Distribution Width 18.3 % (11.5-14.5); WBC 7.1 K/mcL (4.5-11.0)
[2023-11-14] MEDS ORDERED: VANCOMYCIN 1,500 MG in 0.9 % SODIUM CHLORIDE 500 ML IV ONE (09:00)
[2023-11-14] MEDS: FUROSEMIDE 20 MG TABLET PO SCH (09:01)
== END 2023-11-14 13:05 | DRG 291 ==
LOC: ED 11:49 → ICU 17:14
PROVIDERS: ADMIT Internal Medicine; ATTEND Internal Medicine

== ENCOUNTER 2024-07-01 14:22 | Inpatient (IN) ==
[2024-07-01] MEDS ORDERED: IOPAMIDOL 100 ML BOTTLE IV ONE (14:23)
[2024-07-01 15:20] LABS: Basophils # (Auto) 0.04 K/mcL (0.00-0.30); Basophils % (Auto) 0.8 % (0.0-2.0); Eosinophils # (Auto) 0.02 K/mcL (0.00-0.70); Eosinophils % (Auto) 0.4 % (0.0-7.0); Hematocrit 42.3 % (40.1-51.0); Hemoglobin 12.3 g/dL (13.7-17.5); Lymphocytes # (Auto) 1.25 K/mcL (1.50-4.80); Lymphocytes % (Auto) 24.4 % (15.5-49.0); Mean Cell Volume 102.7 fL (80.0-100.0); Mean Corpuscular HGB Conc 29.1 g/dL (31.0-36.0); Mean Platelet Volume 12.6 fL (8.8-12.5); Monocytes # (Auto) 0.96 K/mcL (0.10-0.90); Monocytes % (Auto) 18.8 % (1.0-12.0); Platelet Count 95 K/mcL (140-440); RBC 4.12 M/mcL (4.63-6.08); Red Cell Distribution Width 15.8 % (11.5-14.5); WBC 5.1 K/mcL (4.5-11.0)
[2024-07-01 15:39] LABS: ALT/SGPT < 5 U/L (<40); AST/SGOT 24 U/L (<40); Albumin 4.4 gm/dL (3.2-5.2); Albumin/Globulin Ratio 1.3 (1.0-2.3); Alkaline Phosphatase 156 U/L (39-117); Bilirubin,Total 0.9 mg/dL (0.1-1.0); Blood Urea Nitrogen 36 mg/dL (8-23); Calcium 9.1 mg/dL (8.6-10.4); Carbon Dioxide 23 mmol/L (22-30); Chloride 105 mmol/L (96-108); Globulin 3.4 gm/dL (2.2-3.7); Glomerular Filtration Rate 19; Glucose 201 mg/dL (70-105); Potassium 5.1 mmol/L (3.3-5.1); Sodium 141 mmol/L (133-145)
[2024-07-01] MEDS: FUROSEMIDE 20 MG/2 ML VIAL IV ONE (15:59)
[2024-07-01] MEDS: FUROSEMIDE 40 MG/4 ML VIAL IV ONE (16:05)
[2024-07-01 17:53] LABS: Appearance,Urine Clear (Clear); Bacteria,Urine 0 /hpf (0); Bilirubin,Urine Negative (Negative); Color,Urine Yellow; Glucose,Urine (UA) Negative (Negative); Ketones,Urine Negative (Negative); Leukocyte Esterase,Urine Negative /uL (Negative); Nitrate,Urine Negative (Negative); PH,Urine 5.5 (5.0-9.0); Protein,Urine 30 mg/dL (Negative); Urine Blood Negative ery/mcL (Negative); Urine Hyaline Cast 1 /lph (0-2); Urine RBC 2 /hpf (0-3); Urine Squamous Epithelial Cell 2 /hpf (0-4); Urine WBC 3 /hpf (0-4); Urobilinogen,Urine Normal
[2024-07-01] MEDS ORDERED: ONDANSETRON 4 MG/2 ML VIAL IV PRN (19:34)
[2024-07-01] MEDS ORDERED: ACETAMINOPHEN 325 MG TABLET PO PRN (19:34)
[2024-07-01] MEDS ORDERED: POLYETHYLENE GLYCOL 3350 17 GM PACKET PO PRN (19:34)
[2024-07-01] MEDS: APIXABAN 2.5 MG TABLET PO SCH (21:52)
[2024-07-01] MEDS: FUROSEMIDE 40 MG/4 ML VIAL IV SCH (21:52)
[2024-07-01] MEDS: 0.9 % SODIUM CHLORIDE 10 ML SYRINGE IV SCH (21:52)
[2024-07-02 07:07] LABS: ALT/SGPT < 5 U/L (<40); AST/SGOT 21 U/L (<40); Albumin 3.8 gm/dL (3.2-5.2); Albumin/Globulin Ratio 1.3 (1.0-2.3); Alkaline Phosphatase 129 U/L (39-117); Bilirubin,Total 0.7 mg/dL (0.1-1.0); Blood Urea Nitrogen 35 mg/dL (8-23); Calcium 8.7 mg/dL (8.6-10.4); Carbon Dioxide 26 mmol/L (22-30); Chloride 105 mmol/L (96-108); Glomerular Filtration Rate 20; Glucose 87 mg/dL (70-105); Potassium 4.5 mmol/L (3.3-5.1); Sodium 141 mmol/L (133-145)
[2024-07-02] MEDS: IPRATROPIUM/ALBUTEROL 3 ML AMPUL.NEB NEB SCH (07:30)
[2024-07-02 08:34] LABS: Basophils # (Auto) 0.04 K/mcL (0.00-0.30); Eosinophils # (Auto) 0.03 K/mcL (0.00-0.70); Eosinophils % (Auto) 0.7 % (0.0-7.0); Hematocrit 37.6 % (40.1-51.0); Hemoglobin 11.1 g/dL (13.7-17.5); Lymphocytes # (Auto) 1.29 K/mcL (1.50-4.80); Lymphocytes % (Auto) 31.3 % (15.5-49.0); Mean Cell Volume 101.3 fL (80.0-100.0); Mean Corpuscular HGB Conc 29.5 g/dL (31.0-36.0); Mean Platelet Volume 12.8 fL (8.8-12.5); Monocytes # (Auto) 0.86 K/mcL (0.10-0.90); Monocytes % (Auto) 20.9 % (1.0-12.0); Neutrophils % (Auto) 45.6 % (38.0-78.0); Platelet Count 85 K/mcL (140-440); RBC 3.71 M/mcL (4.63-6.08); WBC 4.1 K/mcL (4.5-11.0)
[2024-07-02] MEDS: hydrALAZINE 25 MG TABLET PO SCH (15:03)
[2024-07-02] MEDS: PREGABALIN 150 MG CAPSULE PO SCH (21:06)
[2024-07-02] MEDS: SENNOSIDES 1 TABLET PO PRN (21:06)
[2024-07-03 07:14] LABS: Basophils # (Auto) 0.07 K/mcL (0.00-0.30); Basophils % (Auto) 1.2 % (0.0-2.0); Eosinophils # (Auto) 0.05 K/mcL (0.00-0.70); Eosinophils % (Auto) 0.9 % (0.0-7.0); Hematocrit 34.8 % (40.1-51.0); Hemoglobin 10.7 g/dL (13.7-17.5); Lymphocytes % (Auto) 20.8 % (15.5-49.0); Mean Cell Volume 98.9 fL (80.0-100.0); Mean Corpuscular HGB Conc 30.7 g/dL (31.0-36.0); Monocytes # (Auto) 1.25 K/mcL (0.10-0.90); Monocytes % (Auto) 21.6 % (1.0-12.0); Neutrophils % (Auto) 55.2 % (38.0-78.0); Platelet Count 100 K/mcL (140-440); RBC 3.52 M/mcL (4.63-6.08); Red Cell Distribution Width 15.6 % (11.5-14.5); WBC 5.8 K/mcL (4.5-11.0)
[2024-07-03 07:35] LABS: ALT/SGPT < 5 U/L (<40); AST/SGOT 20 U/L (<40); Albumin 3.7 gm/dL (3.2-5.2); Albumin/Globulin Ratio 1.4 (1.0-2.3); Alkaline Phosphatase 126 U/L (39-117); Bilirubin,Total 0.7 mg/dL (0.1-1.0); Blood Urea Nitrogen 37 mg/dL (8-23); Calcium 8.3 mg/dL (8.6-10.4); Carbon Dioxide 29 mmol/L (22-30); Chloride 101 mmol/L (96-108); Globulin 2.6 gm/dL (2.2-3.7); Glomerular Filtration Rate 19; Glucose 85 mg/dL (70-105); Potassium 4.1 mmol/L (3.3-5.1); Sodium 142 mmol/L (133-145)
[2024-07-03] MEDS: LEVOTHYROXINE 100 MCG TABLET PO SCH (08:02)
[2024-07-03] MEDS: LORazepam 2 MG/ML VIAL IV ONE ×2 (09:29→12:14)
[2024-07-03] MEDS: FINASTERIDE 5 MG TABLET PO SCH (09:30)
[2024-07-03] MEDS: TAMSULOSIN 0.4 MG CAPSULE PO SCH (09:30)
[2024-07-03] MEDS: ASCORBIC ACID 500 MG TABLET PO SCH (09:30)
[2024-07-03] MEDS: METOPROLOL SUCCINATE 25 MG TAB.XL.24H PO SCH (09:30)
[2024-07-03] MEDS: ATORVASTATIN 20 MG TABLET PO SCH (09:30)
[2024-07-03] MEDS: MULTIVIT,THER IRON,CA,FA & MIN 1 TABLET PO SCH (09:30)
[2024-07-03] MEDS: LOSARTAN 50 MG TABLET PO SCH (09:30)
[2024-07-03] MEDS: levETIRAcetam 1,000 MG in 0.9 % SODIUM CHLORIDE 100 ML IV ONE (13:35)
[2024-07-03 17:36] LABS: Blood Urea Nitrogen 35 mg/dL (8-23); Calcium 8.3 mg/dL (8.6-10.4); Carbon Dioxide 33 mmol/L (22-30); Chloride 101 mmol/L (96-108); Glomerular Filtration Rate 19; Glucose 95 mg/dL (70-105); Phosphorous 4.4 mg/dL (2.5-4.5); Potassium 3.9 mmol/L (3.3-5.1); Sodium 143 mmol/L (133-145)
[2024-07-03] MEDS: IPRATROPIUM/ALBUTEROL 3 ML AMPUL.NEB NEB SCH (20:23)
[2024-07-03] MEDS: FUROSEMIDE 40 MG/4 ML VIAL IV SCH (21:06)
[2024-07-03] MEDS: levETIRAcetam 500 MG in 0.9 % SODIUM CHLORIDE 100 ML IV SCH (21:46)
[2024-07-04 06:42] LABS: Basophils # (Auto) 0.04 K/mcL (0.00-0.30); Basophils % (Auto) 0.9 % (0.0-2.0); Eosinophils # (Auto) 0.03 K/mcL (0.00-0.70); Eosinophils % (Auto) 0.7 % (0.0-7.0); Hematocrit 37.6 % (40.1-51.0); Hemoglobin 11.5 g/dL (13.7-17.5); Lymphocytes % (Auto) 28.8 % (15.5-49.0); Mean Cell Volume 98.9 fL (80.0-100.0); Mean Corpuscular HGB Conc 30.6 g/dL (31.0-36.0); Mean Platelet Volume 12.3 fL (8.8-12.5); Monocytes # (Auto) 0.97 K/mcL (0.10-0.90); Monocytes % (Auto) 21.5 % (1.0-12.0); Neutrophils % (Auto) 47.4 % (38.0-78.0); Platelet Count 92 K/mcL (140-440); Red Cell Distribution Width 15.7 % (11.5-14.5); WBC 4.5 K/mcL (4.5-11.0)
[2024-07-04 06:52] LABS: ALT/SGPT < 5 U/L (<40); AST/SGOT 21 U/L (<40); Albumin 3.6 gm/dL (3.2-5.2); Albumin/Globulin Ratio 1.3 (1.0-2.3); Alkaline Phosphatase 126 U/L (39-117); Bilirubin,Total 0.8 mg/dL (0.1-1.0); Blood Urea Nitrogen 33 mg/dL (8-23); Calcium 8.3 mg/dL (8.6-10.4); Carbon Dioxide 31 mmol/L (22-30); Chloride 102 mmol/L (96-108); Globulin 2.8 gm/dL (2.2-3.7); Glomerular Filtration Rate 20; Glucose 88 mg/dL (70-105); Potassium 4.2 mmol/L (3.3-5.1); Sodium 145 mmol/L (133-145)
[2024-07-04] MEDS: IPRATROPIUM/ALBUTEROL 3 ML AMPUL.NEB NEB SCH (18:45)
[2024-07-04] MEDS: BUDESONIDE 0.5 MG/2 ML AMPUL.NEB NEB SCH (18:52)
[2024-07-05 06:37] LABS: ALT/SGPT < 5 U/L (<40); AST/SGOT 23 U/L (<40); Albumin 3.8 gm/dL (3.2-5.2); Albumin/Globulin Ratio 1.2 (1.0-2.3); Alkaline Phosphatase 129 U/L (39-117); Bilirubin,Direct 0.4 mg/dL (<0.3); Bilirubin,Total 0.9 mg/dL (0.1-1.0); Blood Urea Nitrogen 37 mg/dL (8-23); Calcium 8.6 mg/dL (8.6-10.4); Carbon Dioxide 32 mmol/L (22-30); Chloride 96 mmol/L (96-108); Globulin 3.2 gm/dL (2.2-3.7); Glomerular Filtration Rate 20; Glucose 128 mg/dL (70-105); Lactate Dehydrogenase 262 U/L (135-225); Phosphorous 3.4 mg/dL (2.5-4.5); Potassium 4.2 mmol/L (3.3-5.1); Sodium 139 mmol/L (133-145); Triglycerides 86 mg/dL (<150); Uric Acid 7.9 mg/dL (2.5-8.0)
[2024-07-05] MEDS ORDERED: DEXTROSE 50% 50 ML VIAL IV PRN (10:47)
[2024-07-05] MEDS ORDERED: DEXTROSE 31 GM ORAL.SUSP PO PRN (10:47)
[2024-07-05 11:21] LABS: Thyroid Stimulating Hormone 4.77 uIU/mL (0.27-5.01)
[2024-07-05 13:35] LABS: Free T4 (Free Thyroxine) 1.02 ng/dL (0.93-1.70)
[2024-07-05] MEDS: INSULIN LISPRO 1 UNIT/0.01 ML UNIT SQ SCH (16:19)
[2024-07-05] MEDS: IPRATROPIUM/ALBUTEROL 3 ML AMPUL.NEB NEB PRN (21:32)
[2024-07-06 06:54] LABS: Basophils # (Auto) 0.03 K/mcL (0.00-0.30); Basophils % (Auto) 0.5 % (0.0-2.0); Eosinophils # (Auto) 0.05 K/mcL (0.00-0.70); Eosinophils % (Auto) 0.8 % (0.0-7.0); Hematocrit 41.1 % (40.1-51.0); Hemoglobin 12.7 g/dL (13.7-17.5); Lymphocytes # (Auto) 1.71 K/mcL (1.50-4.80); Lymphocytes % (Auto) 27.1 % (15.5-49.0); Mean Cell Volume 96.7 fL (80.0-100.0); Mean Corpuscular HGB Conc 30.9 g/dL (31.0-36.0); Mean Platelet Volume 12.1 fL (8.8-12.5); Monocytes # (Auto) 1.74 K/mcL (0.10-0.90); Monocytes % (Auto) 27.6 % (1.0-12.0); Neutrophils % (Auto) 43.5 % (38.0-78.0); Platelet Count 105 K/mcL (140-440); RBC 4.25 M/mcL (4.63-6.08); Red Cell Distribution Width 15.5 % (11.5-14.5); WBC 6.3 K/mcL (4.5-11.0)
[2024-07-06 06:56] LABS: ALT/SGPT < 5 U/L (<40); AST/SGOT 22 U/L (<40); Albumin 3.8 gm/dL (3.2-5.2); Albumin/Globulin Ratio 1.2 (1.0-2.3); Alkaline Phosphatase 123 U/L (39-117); Bilirubin,Direct 0.4 mg/dL (<0.3); Bilirubin,Total 0.9 mg/dL (0.1-1.0); Blood Urea Nitrogen 40 mg/dL (8-23); Calcium 8.9 mg/dL (8.6-10.4); Carbon Dioxide 29 mmol/L (22-30); Chloride 95 mmol/L (96-108); Globulin 3.1 gm/dL (2.2-3.7); Glomerular Filtration Rate 21; Glucose 104 mg/dL (70-105); Lactate Dehydrogenase 246 U/L (135-225); Phosphorous 4.3 mg/dL (2.5-4.5); Potassium 3.8 mmol/L (3.3-5.1); Sodium 138 mmol/L (133-145); Triglycerides 134 mg/dL (<150); Uric Acid 8.4 mg/dL (2.5-8.0)
[2024-07-06] MEDS ORDERED: LORazepam 2 MG/ML VIAL IV PRN (07:43)
[2024-07-06] MEDS: METOLAZONE 2.5 MG TABLET PO ONE (08:37)
[2024-07-06] MEDS: FUROSEMIDE 40 MG/4 ML VIAL IV ONE (08:50)
[2024-07-06] MEDS ORDERED: FUROSEMIDE 40 MG/4 ML VIAL IV SCH (09:00)
[2024-07-06] MEDS ORDERED: hydrALAZINE 20 MG/ML VIAL IV PRN (14:51)
[2024-07-08] MEDS ORDERED: PREGABALIN 150 MG CAPSULE PO SCH (21:00)
== END 2024-07-07 14:25 | disposition home or self-care (01) | DRG 291 ==
LOC: ED 14:22 → MEDSUR 20:47 → ICU 07-03 14:56
PROVIDERS: ADMIT Student in an Organized Health Care Education/Training Program; ATTEND Internal Medicine

== ENCOUNTER 2024-09-11 12:52 | Inpatient (IN) ==
[2024-09-11] MEDS: DEXTROSE 25 % 10ML SYRINGE (PEDIATRIC) IV ONE (13:17)
[2024-09-11] MEDS: DEXTROSE 50% 50 ML SYRINGE IV ONE (13:17)
[2024-09-11] MEDS: DEXTROSE 50% 50 ML VIAL IV ONE (13:21)
[2024-09-11] MEDS: DEXTROSE 5%-NS 1,000 ML IV SCH (13:23)
[2024-09-11 14:04] LABS: ALT/SGPT 6 U/L (<40); AST/SGOT 19 U/L (<40); Albumin 3.8 gm/dL (3.2-5.2); Albumin/Globulin Ratio 1.1 (1.0-2.3); Alkaline Phosphatase 129 U/L (39-117); Bilirubin,Total 0.6 mg/dL (0.1-1.0); Blood Urea Nitrogen 45 mg/dL (8-23); Calcium 8.4 mg/dL (8.6-10.4); Carbon Dioxide 25 mmol/L (22-30); Chloride 105 mmol/L (96-108); Globulin 3.6 gm/dL (2.2-3.7); Glomerular Filtration Rate 16; Glucose 62 mg/dL (70-105); Potassium 5.4 mmol/L (3.3-5.1); Sodium 142 mmol/L (133-145)
[2024-09-11 14:17] LABS: Basophils # (Auto) 0.04 K/mcL (0.00-0.30); Basophils % (Auto) 0.7 % (0.0-2.0); Eosinophils # (Auto) 0.03 K/mcL (0.00-0.70); Eosinophils % (Auto) 0.5 % (0.0-7.0); Hematocrit 38.1 % (40.1-51.0); Hemoglobin 11.6 g/dL (13.7-17.5); Lymphocytes # (Auto) 1.05 K/mcL (1.50-4.80); Lymphocytes % (Auto) 17.4 % (15.5-49.0); Mean Corpuscular HGB Conc 30.4 g/dL (31.0-36.0); Monocytes # (Auto) 1.11 K/mcL (0.10-0.90); Monocytes % (Auto) 18.4 % (1.0-12.0); Neutrophils % (Auto) 61.7 % (38.0-78.0); Platelet Count 90 K/mcL (140-440); RBC 3.85 M/mcL (4.63-6.08); Red Cell Distribution Width 16.7 % (11.5-14.5)
[2024-09-11] MEDS ORDERED: ONDANSETRON 4 MG/2 ML VIAL IV PRN (17:01)
[2024-09-11] MEDS ORDERED: METOPROLOL TARTRATE 5 MG/5 ML VIAL IV PRN (17:01)
[2024-09-11] MEDS ORDERED: POTASSIUM CHLORIDE 40 MEQ in DEXTROSE 5% IN WATER 500 ML IV PRN (17:01)
[2024-09-11] MEDS ORDERED: POLYETHYLENE GLYCOL 3350 17 GM PACKET PO PRN (17:01)
[2024-09-11] MEDS ORDERED: MAGNESIUM SULFATE 2 GM/50 ML BAG IV PRN (17:01)
[2024-09-11] MEDS ORDERED: ACETAMINOPHEN 160 MG/5 ML ORAL.SOL PO PRN (17:01)
[2024-09-11] MEDS ORDERED: POTASSIUM CHLORIDE 20 MEQ TABLET PO PRN ×2 (17:01)
[2024-09-11] MEDS ORDERED: IPRATROPIUM/ALBUTEROL 3 ML AMPUL.NEB NEB PRN (17:01)
[2024-09-11] MEDS ORDERED: METOCLOPRAMIDE 10 MG/2 ML VIAL IV PRN (17:01)
[2024-09-11] MEDS ORDERED: DEXTROSE 50% 50 ML VIAL IV PRN (17:01)
[2024-09-11] MEDS ORDERED: DEXTROSE 31 GM ORAL.SUSP PO PRN (17:01)
[2024-09-11] MEDS: FUROSEMIDE 100 MG/10 ML VIAL IV ONE (18:49)
[2024-09-11] MEDS: 0.9 % SODIUM CHLORIDE 10 ML SYRINGE IV SCH (18:51)
[2024-09-11] MEDS: FINASTERIDE 5 MG TABLET PO SCH (20:25)
[2024-09-11] MEDS: SENNOSIDES 1 TABLET PO PRN (20:25)
[2024-09-11] MEDS: APIXABAN 2.5 MG TABLET PO SCH (20:25)
[2024-09-11] MEDS: DOCUSATE SODIUM 100 MG CAPSULE PO SCH (20:25)
[2024-09-11] MEDS: INSULIN LISPRO 1 UNIT/0.01 ML UNIT SQ SCH (20:39)
[2024-09-11] MEDS: LABETALOL HCL 20 MG/4 ML VIAL IV PRN (22:24)
[2024-09-12] MEDS: LABETALOL HCL 20 MG/4 ML VIAL IV ONE ×2 (02:43→02:44)
[2024-09-12 06:22] LABS: Basophils # (Auto) 0.05 K/mcL (0.00-0.30); Basophils % (Auto) 0.8 % (0.0-2.0); Eosinophils # (Auto) 0.01 K/mcL (0.00-0.70); Eosinophils % (Auto) 0.2 % (0.0-7.0); Hematocrit 34.7 % (40.1-51.0); Hemoglobin 10.8 g/dL (13.7-17.5); Lymphocytes # (Auto) 1.08 K/mcL (1.50-4.80); Lymphocytes % (Auto) 16.4 % (15.5-49.0); Mean Cell Volume 97.7 fL (80.0-100.0); Mean Corpuscular HGB Conc 31.1 g/dL (31.0-36.0); Monocytes % (Auto) 19.8 % (1.0-12.0); Neutrophils % (Auto) 62.3 % (38.0-78.0); Platelet Count 85 K/mcL (140-440); RBC 3.55 M/mcL (4.63-6.08); Red Cell Distribution Width 16.4 % (11.5-14.5); WBC 6.6 K/mcL (4.5-11.0)
[2024-09-12 06:55] LABS: ALT/SGPT < 5 U/L (<40); AST/SGOT 16 U/L (<40); Albumin 3.5 gm/dL (3.2-5.2); Alkaline Phosphatase 117 U/L (39-117); Bilirubin,Direct 0.4 mg/dL (<0.3); Bilirubin,Total 0.7 mg/dL (0.1-1.0); Blood Urea Nitrogen 42 mg/dL (8-23); Calcium 8.1 mg/dL (8.6-10.4); Carbon Dioxide 24 mmol/L (22-30); Chloride 103 mmol/L (96-108); Globulin 3.4 gm/dL (2.2-3.7); Glomerular Filtration Rate 19; Glucose 134 mg/dL (70-105); Lactate Dehydrogenase 256 U/L (135-225); Phosphorous 4.4 mg/dL (2.5-4.5); Potassium 4.9 mmol/L (3.3-5.1); Sodium 141 mmol/L (133-145); Triglycerides 81 mg/dL (<150); Uric Acid 8.5 mg/dL (2.5-8.0)
[2024-09-12] MEDS: FUROSEMIDE 100 MG/10 ML VIAL IV SCH (08:28)
[2024-09-12] MEDS: TAMSULOSIN 0.4 MG CAPSULE PO SCH (08:28)
[2024-09-12] MEDS: PREGABALIN 150 MG CAPSULE PO SCH (08:29)
[2024-09-12] MEDS: Mirabegron [Myrbetriq] 50 mg tablet extended release PO SCH (08:29)
[2024-09-12] MEDS: LEVOTHYROXINE 100 MCG TABLET PO SCH (08:29)
[2024-09-12] MEDS: CARVEDILOL 12.5 MG TABLET PO SCH (08:29)
[2024-09-12] MEDS: ATORVASTATIN 20 MG TABLET PO SCH (08:29)
[2024-09-13 05:59] LABS: Basophils # (Auto) 0.03 K/mcL (0.00-0.30); Basophils % (Auto) 0.5 % (0.0-2.0); Eosinophils # (Auto) 0.04 K/mcL (0.00-0.70); Eosinophils % (Auto) 0.7 % (0.0-7.0); Hematocrit 35.1 % (40.1-51.0); Hemoglobin 11.3 g/dL (13.7-17.5); Lymphocytes # (Auto) 1.63 K/mcL (1.50-4.80); Lymphocytes % (Auto) 27.5 % (15.5-49.0); Mean Cell Volume 94.4 fL (80.0-100.0); Mean Corpuscular HGB Conc 32.2 g/dL (31.0-36.0); Mean Platelet Volume 11.9 fL (8.8-12.5); Monocytes # (Auto) 1.52 K/mcL (0.10-0.90); Monocytes % (Auto) 25.7 % (1.0-12.0); Neutrophils % (Auto) 45.4 % (38.0-78.0); Platelet Count 93 K/mcL (140-440); RBC 3.72 M/mcL (4.63-6.08); WBC 5.9 K/mcL (4.5-11.0)
[2024-09-13 06:47] LABS: ALT/SGPT < 5 U/L (<40); AST/SGOT 16 U/L (<40); Albumin 3.4 gm/dL (3.2-5.2); Alkaline Phosphatase 117 U/L (39-117); Bilirubin,Direct 0.4 mg/dL (<0.3); Bilirubin,Total 0.8 mg/dL (0.1-1.0); Blood Urea Nitrogen 40 mg/dL (8-23); Calcium 8.5 mg/dL (8.6-10.4); Carbon Dioxide 27 mmol/L (22-30); Chloride 101 mmol/L (96-108); Globulin 3.3 gm/dL (2.2-3.7); Glomerular Filtration Rate 20; Glucose 107 mg/dL (70-105); Lactate Dehydrogenase 226 U/L (135-225); Phosphorous 4.1 mg/dL (2.5-4.5); Potassium 3.9 mmol/L (3.3-5.1); Sodium 140 mmol/L (133-145); Triglycerides 77 mg/dL (<150); Uric Acid 8.4 mg/dL (2.5-8.0)
[2024-09-13] MEDS: FUROSEMIDE 40 MG/4 ML VIAL IV ONE (09:18)
[2024-09-13] MEDS: FUROSEMIDE 20 MG TABLET PO SCH (16:37)
[2024-09-13] MEDS: HYDROcodone/APAP 5/325MG TABLET PO PRN (20:58)
== END 2024-09-14 14:15 | DRG 637 ==
LOC: ED 12:52 → ICU 18:06 → MEDSUR 09-13 17:37
PROVIDERS: ADMIT Internal Medicine; ATTEND Internal Medicine

== ENCOUNTER 2025-03-29 16:48 | Inpatient (IN) ==
[2025-03-29] MEDS: 0.9 % SODIUM CHLORIDE 500 ML IV ONE (17:16)
[2025-03-29 17:46] LABS: Appearance,Urine Clear (Clear); Bilirubin,Urine Negative (Negative); Color,Urine Yellow; Glucose,Urine (UA) Negative (Negative); Ketones,Urine Negative (Negative); Leukocyte Esterase,Urine Negative /uL (Negative); Nitrate,Urine Negative (Negative); PH,Urine 8.5 (5.0-9.0); Protein,Urine >=300 mg/dL (Negative); Urine Blood Large ery/mcL (Negative); Urine RBC > 182 /hpf (0-1); Urine Squamous Epithelial Cell 1 /hpf (0-4); Urine WBC 0 /hpf (0-4); Urobilinogen,Urine Normal
[2025-03-29] MEDS: FUROSEMIDE 100 MG/10 ML VIAL IV ONE (17:55)
[2025-03-29 18:12] LABS: ALT/SGPT 7 U/L (<40); AST/SGOT 17 U/L (<40); Albumin 3.8 gm/dL (3.2-5.2); Albumin/Globulin Ratio 1.1 (1.0-2.3); Alkaline Phosphatase 137 U/L (39-117); Bilirubin,Total 0.7 mg/dL (0.1-1.0); Blood Urea Nitrogen 44 mg/dL (8-23); Calcium 8.7 mg/dL (8.6-10.4); Carbon Dioxide 29 mmol/L (22-30); Chloride 96 mmol/L (96-108); Globulin 3.6 gm/dL (2.2-3.7); Glomerular Filtration Rate 15; Glucose 132 mg/dL (70-105); Potassium 4.7 mmol/L (3.3-5.1); Sodium 138 mmol/L (133-145); Thyroid Stimulating Hormone 1.42 uIU/mL (0.27-5.01)
[2025-03-29 18:16] LABS: Basophils # (Auto) 0.04 K/mcL (0.00-0.30); Basophils % (Auto) 0.8 % (0.0-2.0); Eosinophils # (Auto) 0.02 K/mcL (0.00-0.70); Eosinophils % (Auto) 0.4 % (0.0-7.0); Hematocrit 37.7 % (40.1-51.0); Hemoglobin 11.9 g/dL (13.7-17.5); Lymphocytes # (Auto) 1.32 K/mcL (1.50-4.80); Lymphocytes % (Auto) 27.1 % (15.5-49.0); Mean Cell Volume 96.9 fL (80.0-100.0); Mean Corpuscular HGB Conc 31.6 g/dL (31.0-36.0); Mean Platelet Volume 11.9 fL (8.8-12.5); Monocytes % (Auto) 24.6 % (1.0-12.0); Neutrophils % (Auto) 46.7 % (38.0-78.0); Platelet Count 138 K/mcL (140-440); RBC 3.89 M/mcL (4.63-6.08); Red Cell Distribution Width 15.2 % (11.5-14.5); WBC 4.9 K/mcL (4.5-11.0)
[2025-03-29] MEDS ORDERED: SENNOSIDES 1 TABLET PO PRN (22:39)
[2025-03-29] MEDS ORDERED: POLYETHYLENE GLYCOL 3350 17 GM PACKET PO PRN (22:39)
[2025-03-29] MEDS ORDERED: ONDANSETRON 4 MG/2 ML VIAL IV PRN (22:39)
[2025-03-29] MEDS ORDERED: NALOXONE HCL 0.4 MG/ML VIAL IV PRN (22:39)
[2025-03-29 23:44] LABS: Thyroid Stimulating Hormone 1.77 uIU/mL (0.27-5.01)
[2025-03-30 06:11] LABS: C-Reactive Protein 5.33 mg/dL (0.03-0.80)
[2025-03-30 07:04] LABS: Basophils # (Auto) 0.04 K/mcL (0.00-0.30); Basophils % (Auto) 0.7 % (0.0-2.0); Eosinophils # (Auto) 0.01 K/mcL (0.00-0.70); Eosinophils % (Auto) 0.2 % (0.0-7.0); Hematocrit 40.2 % (40.1-51.0); Hemoglobin 12.9 g/dL (13.7-17.5); Lymphocytes # (Auto) 1.45 K/mcL (1.50-4.80); Lymphocytes % (Auto) 23.7 % (15.5-49.0); Mean Cell Volume 95.9 fL (80.0-100.0); Mean Corpuscular HGB Conc 32.1 g/dL (31.0-36.0); Mean Platelet Volume 11.6 fL (8.8-12.5); Monocytes # (Auto) 1.53 K/mcL (0.10-0.90); Neutrophils % (Auto) 50.1 % (38.0-78.0); Platelet Count 120 K/mcL (140-440); RBC 4.19 M/mcL (4.63-6.08); Red Cell Distribution Width 15.2 % (11.5-14.5); WBC 6.1 K/mcL (4.5-11.0)
[2025-03-30] MEDS: IPRATROPIUM/ALBUTEROL 3 ML AMPUL.NEB NEB PRN (08:26)
[2025-03-30 09:15] LABS: ALT/SGPT 6 U/L (<40); AST/SGOT 17 U/L (<40); Albumin 3.7 gm/dL (3.2-5.2); Alkaline Phosphatase 132 U/L (39-117); Bilirubin,Direct 0.3 mg/dL (<0.3); Bilirubin,Total 0.7 mg/dL (0.1-1.0); Blood Urea Nitrogen 47 mg/dL (8-23); Calcium 8.8 mg/dL (8.6-10.4); Carbon Dioxide 28 mmol/L (22-30); Chloride 98 mmol/L (96-108); Globulin 3.7 gm/dL (2.2-3.7); Glomerular Filtration Rate 14; Glucose 150 mg/dL (70-105); Lactate Dehydrogenase 257 U/L (135-225); Phosphorous 4.8 mg/dL (2.5-4.5); Potassium 4.8 mmol/L (3.3-5.1); Sodium 141 mmol/L (133-145); Triglycerides 160 mg/dL (<150); Uric Acid 9.4 mg/dL (2.5-8.0)
[2025-03-30] MEDS: 0.9 % SODIUM CHLORIDE 10 ML SYRINGE IV SCH (10:10)
[2025-03-30] MEDS: LEVOTHYROXINE 100 MCG TABLET PO SCH (10:30)
[2025-03-30] MEDS: APIXABAN 2.5 MG TABLET PO SCH (10:30)
[2025-03-30] MEDS: FUROSEMIDE 100 MG/10 ML VIAL IV SCH (10:30)
[2025-03-30] MEDS: CARVEDILOL 6.25 MG TABLET PO SCH (10:30)
[2025-03-30] MEDS: MIRABEGRON 25 MG TAB.ER.24H PO SCH (13:39)
[2025-03-30] MEDS ORDERED: PREGABALIN 25 MG CAPSULE PO SCH (21:00)
[2025-03-31 05:49] LABS: ALT/SGPT < 5 U/L (<40); AST/SGOT 18 U/L (<40); Albumin 3.6 gm/dL (3.2-5.2); Albumin/Globulin Ratio 0.9 (1.0-2.3); Alkaline Phosphatase 119 U/L (39-117); Bilirubin,Direct 0.3 mg/dL (<0.3); Bilirubin,Total 0.7 mg/dL (0.1-1.0); Blood Urea Nitrogen 60 mg/dL (8-23); C-Reactive Protein 9.36 mg/dL (0.03-0.80); Calcium 8.8 mg/dL (8.6-10.4); Carbon Dioxide 28 mmol/L (22-30); Chloride 95 mmol/L (96-108); Globulin 3.8 gm/dL (2.2-3.7); Glomerular Filtration Rate 12; Glucose 152 mg/dL (70-105); Lactate Dehydrogenase 299 U/L (135-225); Phosphorous 6.6 mg/dL (2.5-4.5); Potassium 4.6 mmol/L (3.3-5.1); Sodium 140 mmol/L (133-145); Triglycerides 172 mg/dL (<150); Uric Acid 10.2 mg/dL (2.5-8.0)
[2025-03-31 07:09] LABS: Basophils # (Auto) 0.07 K/mcL (0.00-0.30); Eosinophils # (Auto) 0 K/mcL (0.00-0.70); Eosinophils % (Auto) 0 % (0.0-7.0); Hematocrit 40.3 % (40.1-51.0); Hemoglobin 12.8 g/dL (13.7-17.5); Lymphocytes # (Auto) 1.64 K/mcL (1.50-4.80); Mean Cell Volume 95.7 fL (80.0-100.0); Mean Corpuscular HGB Conc 31.8 g/dL (31.0-36.0); Mean Platelet Volume 11.9 fL (8.8-12.5); Monocytes # (Auto) 2.11 K/mcL (0.10-0.90); Monocytes % (Auto) 30.8 % (1.0-12.0); Neutrophils % (Auto) 43.8 % (38.0-78.0); Platelet Count 115 K/mcL (140-440); RBC 4.21 M/mcL (4.63-6.08); Red Cell Distribution Width 15.3 % (11.5-14.5); WBC 6.8 K/mcL (4.5-11.0)
[2025-04-01 06:14] LABS: C-Reactive Protein 7.53 mg/dL (0.03-0.80)
[2025-04-01 06:38] LABS: ALT/SGPT < 5 U/L (<40); AST/SGOT 17 U/L (<40); Albumin 3.4 gm/dL (3.2-5.2); Alkaline Phosphatase 101 U/L (39-117); Bilirubin,Direct 0.3 mg/dL (<0.3); Bilirubin,Total 0.6 mg/dL (0.1-1.0); Blood Urea Nitrogen 77 mg/dL (8-23); Calcium 8.3 mg/dL (8.6-10.4); Carbon Dioxide 27 mmol/L (22-30); Chloride 102 mmol/L (96-108); Globulin 3.5 gm/dL (2.2-3.7); Glomerular Filtration Rate 9; Glucose 171 mg/dL (70-105); Lactate Dehydrogenase 260 U/L (135-225); Phosphorous 6.7 mg/dL (2.5-4.5); Potassium 4.3 mmol/L (3.3-5.1); Sodium 147 mmol/L (133-145); Triglycerides 213 mg/dL (<150); Uric Acid 10.9 mg/dL (2.5-8.0)
[2025-04-01 06:41] LABS: Basophils # (Auto) 0.05 K/mcL (0.00-0.30); Basophils % (Auto) 0.8 % (0.0-2.0); Eosinophils # (Auto) 0.03 K/mcL (0.00-0.70); Eosinophils % (Auto) 0.5 % (0.0-7.0); Hematocrit 38.8 % (40.1-51.0); Hemoglobin 12.5 g/dL (13.7-17.5); Lymphocytes # (Auto) 1.48 K/mcL (1.50-4.80); Lymphocytes % (Auto) 24.7 % (15.5-49.0); Mean Cell Volume 95.1 fL (80.0-100.0); Mean Corpuscular HGB Conc 32.2 g/dL (31.0-36.0); Mean Platelet Volume 12.5 fL (8.8-12.5); Monocytes # (Auto) 2.15 K/mcL (0.10-0.90); Neutrophils % (Auto) 37.5 % (38.0-78.0); Platelet Count 110 K/mcL (140-440); RBC 4.08 M/mcL (4.63-6.08); Red Cell Distribution Width 15.2 % (11.5-14.5)
[2025-04-01] MEDS: 0.45 % SODIUM CHLORIDE 1,000 ML IV SCH (08:09)
[2025-04-02 06:34] LABS: Basophils # (Auto) 0.03 K/mcL (0.00-0.30); Basophils % (Auto) 0.5 % (0.0-2.0); Eosinophils # (Auto) 0.03 K/mcL (0.00-0.70); Eosinophils % (Auto) 0.5 % (0.0-7.0); Hematocrit 36.2 % (40.1-51.0); Hemoglobin 11.9 g/dL (13.7-17.5); Lymphocytes # (Auto) 1.52 K/mcL (1.50-4.80); Lymphocytes % (Auto) 26.7 % (15.5-49.0); Mean Cell Volume 93.5 fL (80.0-100.0); Mean Corpuscular HGB Conc 32.9 g/dL (31.0-36.0); Mean Platelet Volume 12.3 fL (8.8-12.5); Monocytes # (Auto) 1.77 K/mcL (0.10-0.90); Monocytes % (Auto) 31.1 % (1.0-12.0); Neutrophils % (Auto) 40.5 % (38.0-78.0); Platelet Count 98 K/mcL (140-440); RBC 3.87 M/mcL (4.63-6.08); Red Cell Distribution Width 15.2 % (11.5-14.5); WBC 5.7 K/mcL (4.5-11.0)
[2025-04-02 06:39] LABS: ALT/SGPT 5 U/L (<40); AST/SGOT 17 U/L (<40); Albumin 3.3 gm/dL (3.2-5.2); Alkaline Phosphatase 97 U/L (39-117); Bilirubin,Direct 0.3 mg/dL (<0.3); Bilirubin,Total 0.7 mg/dL (0.1-1.0); Blood Urea Nitrogen 87 mg/dL (8-23); Calcium 7.8 mg/dL (8.6-10.4); Carbon Dioxide 25 mmol/L (22-30); Chloride 90 mmol/L (96-108); Globulin 3.2 gm/dL (2.2-3.7); Glomerular Filtration Rate 9; Glucose 154 mg/dL (70-105); Lactate Dehydrogenase 281 U/L (135-225); Phosphorous 7.1 mg/dL (2.5-4.5); Potassium 4.5 mmol/L (3.3-5.1); Sodium 131 mmol/L (133-145); Triglycerides 227 mg/dL (<150); Uric Acid 10.6 mg/dL (2.5-8.0)
[2025-04-02] MEDS: CALCIUM ACETATE 667 MG TABLET PO SCH (09:24)
[2025-04-02] MEDS ORDERED: MELATONIN 3 MG TABLET PO SCH (22:04)
[2025-04-02] MEDS: MELATONIN 3 MG TABLET PO SCH (22:07)
[2025-04-02] MEDS: MELATONIN 3 MG TABLET PO ONE (22:08)
[2025-04-03 06:41] LABS: Basophils # (Auto) 0.06 K/mcL (0.00-0.30); Basophils % (Auto) 1.2 % (0.0-2.0); Eosinophils # (Auto) 0.06 K/mcL (0.00-0.70); Eosinophils % (Auto) 1.2 % (0.0-7.0); Hematocrit 38.4 % (40.1-51.0); Hemoglobin 11.6 g/dL (13.7-17.5); Lymphocytes # (Auto) 1.25 K/mcL (1.50-4.80); Lymphocytes % (Auto) 24.9 % (15.5-49.0); Mean Cell Volume 102.1 fL (80.0-100.0); Mean Corpuscular HGB Conc 30.2 g/dL (31.0-36.0); Mean Platelet Volume 12.2 fL (8.8-12.5); Monocytes # (Auto) 1.34 K/mcL (0.10-0.90); Monocytes % (Auto) 26.7 % (1.0-12.0); Neutrophils % (Auto) 45.6 % (38.0-78.0); Platelet Count 105 K/mcL (140-440); RBC 3.76 M/mcL (4.63-6.08); Red Cell Distribution Width 14.9 % (11.5-14.5)
[2025-04-03 08:11] LABS: ALT/SGPT < 5 U/L (<40); AST/SGOT 16 U/L (<40); Albumin 3.2 gm/dL (3.2-5.2); Albumin/Globulin Ratio 1.1 (1.0-2.3); Alkaline Phosphatase 89 U/L (39-117); Bilirubin,Direct 0.3 mg/dL (<0.3); Bilirubin,Total 0.6 mg/dL (0.1-1.0); Blood Urea Nitrogen 99 mg/dL (8-23); Calcium 7.7 mg/dL (8.6-10.4); Carbon Dioxide 20 mmol/L (22-30); Chloride 92 mmol/L (96-108); Glomerular Filtration Rate 8; Glucose 158 mg/dL (70-105); Lactate Dehydrogenase 261 U/L (135-225); Phosphorous 8.1 mg/dL (2.5-4.5); Potassium 4.3 mmol/L (3.3-5.1); Sodium 133 mmol/L (133-145); Triglycerides 193 mg/dL (<150); Uric Acid 10.5 mg/dL (2.5-8.0)
[2025-04-03] MEDS: LACTULOSE 20 GM/30 ML ORAL.SOL PO PRN (08:57)
[2025-04-03] MEDS: CALCIUM ACETATE 667 MG TABLET PO SCH ×2 (08:57→09:04)
[2025-04-03] MEDS ORDERED: MELATONIN 3 MG TABLET PO SCH (19:00)
[2025-04-03] MEDS: ACETAMINOPHEN 325 MG TABLET PO PRN (21:46)
[2025-04-04 07:51] VITALS: O2SAT 98
[2025-04-04 13:52] VITALS: TEMP 97.5
== END 2025-04-04 14:00 | disposition hospice, inpatient (51) | DRG 698 ==
LOC: ICU 16:48 → ED 16:48 → ICU 22:27 → MEDSUR 04-01 21:00
PROVIDERS: ADMIT Student in an Organized Health Care Education/Training Program; ATTEND Student in an Organized Health Care Education/Training Program